=== PATIENT | male | born 1960 | race Caucasian/White ===

== ENCOUNTER → 2020-02-01 12:26 | Outpatient (BNVA) | payer OTHER, SELFPAY | PROVIDERS: PCP Internal Medicine; Referring Provider Internal Medicine; Visit Provider Physician Assistant | DX: Z01.818 Encounter for other preprocedural examination (principal); Z80.0 Family history of malignant neoplasm of digestive organs | CPT/HCPCS: 99202 ==

== ENCOUNTER 2020-04-17 08:35 | Outpatient (REF) | payer OTHER, SELFPAY ==
[2020-04-17 09:59] LABS: Prostate Specific Antigen 0.38 ng/mL (<0.05-4.0)
[2020-04-18 09:02] LABS: Herpes Simplex Type 2 IgG <0.90 index
[2020-04-21 14:02] LABS: HSV 1 IgM IFA Negative (Negative); HSV 2 IgM IFA Negative (Negative)
== END 2020-04-17 08:36 | disposition home or self-care (01) ==
LOC: HO.LAB 08:35
PROVIDERS: PCP Internal Medicine; Visit Provider Internal Medicine
DX: R35.0 Frequency of micturition (principal); K13.79 Other lesions of oral mucosa; R39.89 Other symptoms and signs involving the genitourinary system
CPT/HCPCS: 36415; 84153; 86695; 86696

== ENCOUNTER 2021-03-29 07:42 | Outpatient (REF) | payer OTHER, SELFPAY ==
[2021-03-29 08:03] LABS: MANUAL DIFF FLAG NO
[2021-03-29 08:06] LABS: Basophils Absolute Auto 0.1 X10*3/uL (0.0-0.2); Basophils Percent Auto 0.8 % (0-2); Eosinophils Absolute Auto 0.4 X10*3/uL (0.0-0.4); Eosinophils Percent Auto 5.3 % (0-4); Hematocrit 47.1 % (42.0-52.0); Hemoglobin 16.2 g/dl (14.0-18.0); Imm Gran Abs Auto 0.01 X10*3/uL (0.00-0.03); Imm Gran Pct Auto 0.1 % (0.0-0.4); Lymphocytes Absolute Auto 1.4 X10*3/uL (1.2-4.9); Lymphocytes Percent Auto 19.4 % (20-40); Mean Corpuscular HGB Conc 34.4 g/dl (31.0-36.0); Mean Corpuscular Hemoglobin 36.7 pg (27.0-33.0); Mean Corpuscular Volume 106.8 fL (80.0-98.0); Mean Platelet Volume 10.4 fL (9.4-12.4); Monocytes Absolute Auto 0.6 X10*3/uL (0.1-1.2); Monocytes Percent Auto 8.6 % (2-11); Neutrophils Absolute Auto 4.8 x10*3/uL (2.0-8.3); Neutrophils Percent Auto 65.8 % (45-73); Platelet Count 142 X10*3/uL (160-400); Red Blood Count 4.41 X10*6/uL (4.60-5.80); Red Cell Distribution Width 12.4 % (11.0-16.0); White Blood Count 7.3 X10*3/uL (4.8-10.8)
[2021-03-29 08:33] LABS: Alanine Aminotransferase 38 U/L (0-40); Albumin Level 4.1 g/dL (3.5-5.0); Alkaline Phosphatase 131 U/L (39-117); Anion Gap 12 (12-20); Aspartate Amino Transferase 50 U/L (5-37); Bilirubin Total 1.5 mg/dL (0.0-1.0); Blood Urea Nitrogen 9 mg/dL (9-16); Calcium 9.8 mg/dL (8.4-10.2); Carbon Dioxide 28 mmol/L (22-29); Chloride 102 mmol/L (96-108); Cholesterol 175 mg/dL; Estimated Glomerular Filt Rate > 60; Glucose Fasting 90 mg/dL (60-99); HDL Cholesterol 81 mg/dL; LDL Cholesterol Calculated 73 mg/dl; Sodium 138 mmol/L (135-145); Total Protein 7.3 g/dL (6.5-8.0); Triglycerides 107 mg/dL
[2021-03-29 08:38] LABS: B Type Natriuretic Peptide 618 pg/mL (<100)
[2021-03-29 08:53] LABS: TSH reflex Free T4 1.73 uIU/mL (0.32-4.0); Vitamin D 25-OH Total 28.8 ng/mL (>30)
[2021-03-29 09:09] LABS: Digoxin < 0.3 ng/mL (0.8-2.0)
[2021-03-29 10:12] LABS: Appearance Urine CLEAR; Color Urine YELLOW; Glucose Urine UA NEG (NEG); Leukocyte Esterase Urine NEG (NEG); Nitrite Urine NEG (NEG); Urine Blood NEG (NEG); Urine Ketones NEG (NEG); Urine Protein NEG (NEG-TRACE)
== END 2021-03-29 07:43 | disposition home or self-care (01) ==
LOC: HO.LAB 07:42
PROVIDERS: Visit Provider Internal Medicine
DX: I11.0 Hypertensive heart disease with heart failure (principal); I50.20 Unspecified systolic (congestive) heart failure; I25.10 Atherosclerotic heart disease of native coronary artery without angina pectoris; J44.9 Chronic obstructive pulmonary disease, unspecified; E78.00 Pure hypercholesterolemia, unspecified; E55.9 Vitamin D deficiency, unspecified; Z79.899 Other long term (current) drug therapy
CPT/HCPCS: 36415; 80053; 80061; 80162; 81003; 82306; 83880; 84443; 85025

== ENCOUNTER → 2021-05-15 13:50 | Outpatient (REF) | payer OTHER, SELFPAY ==
--- NOTE | 2021-05-15 13:56 | CA_ITS ---
Transthoracic Echocardiogram Patient (Last, First, Middle): Bryan Fischer, Gender: Male Date of : 1960 Age: 61 Procedure Date: 05/15/2021 Procedure Type: Transthoracic Echocardiogram Location: OP Height: 170.18 cm Weight: 51.26 kg BSA: 1.59 m2 Heart Rate: bpm BP: 98 / 63 mmHg Marketing Representative: TSERING Gregorio MD: Cleveland Marie MD Dictating Machine Typist: Rolf James MD Symptoms: I50.20 - Unspecified systolic (congestive) heart failure Study Quality: Fair/Contrast ECG Rhythm: Sinus Conclusions: - 1. Moderately dilated left ventricle with severe LV systolic dysfunction with LVEF of about 15% with regional wall motion abnormality in LAD territory consistent with prior myocardial infarction. Restrictive LV filling pattern noted. No evidence of LV thrombus. 2. Mildly dilated right ventricle with mildly reduced RV systolic function 3. At least moderately dilated left atrium 4. At least moderate mitral regurgitation secondary to annular dilatation 5. Moderately elevated right ventricular systolic pressure 6. No gross pericardial effusion Findings Procedure Information Contrast agent, definity, is being given per protocol without apparent complications. Left Ventricle Moderately increased left ventricular cavity size. There is normal left ventricular wall thickness. The left ventricular systolic function is severely decreased. The visually estimated ejection fraction is between 10 15%. Spectral Doppler is indicative of a restrictive filling pattern. There is no evidence of a thrombus in the left ventricle. Wall Motion Rest Echo Findings The inferior wall, entire lateral wall, and basal anterior segment are hypokinetic. The entire septum, the apex, apical anterior, and mid anterior segments are akinetic. Right Ventricle Mildly increased right ventricular cavity size. There is mildly decreased right ventricular systolic function. Atria The left atrium is moderately dilated. Interatrial shunt cannot be excluded. The right atrium is mildly dilated. Aortic Valve The aortic valve structure and function is likely normal. There is no aortic valve stenosis. There is trace (trivial) aortic valve regurgitation. Mitral Valve There is mild anterior and posterior mitral leaflet thickening. There is moderate mitral valve regurgitation. There is moderate mitral annular dilatation. Pulmonic Valve The pulmonic valve is likely normal. There is trace to mild pulmonic valve regurgitation. Tricuspid Valve Normal tricuspid valve structure. There is mild tricuspid valve regurgitation. Normal right atrial pressure. Moderate pulmonary hypertension is present. Great Vessels All visible segments of the aorta are normal in size. The pulmonary artery was not well visualized. Venous The inferior vena cava is normal in size and collapses greater than 50% with inspiration. Pericardium/Pleural There is no evidence of pericardial effusion. Prior Study Comparison Changes noted compared to prior study dated: 07/17/2018. Mitral regurgitation appears to be worse. RV systolic pressure is elevated Measurements 2D Linear Measurements IVSd: 0.71 0.6-0.9/0.6-1.0 cm LVIDd: 6.55 3.9-5.3/4.2-5.9 cm LVIDd Index: 4.12 2.4-3.2/2.2-3.1 cm/m2 LVIDs: 6.29 2.0-3.6 cm LVPWd: 0.94 0.7-1.1 cm Ao Root: 3.30 2.1-3.5 cm LA Diam: 4.00 2.7-3.8/3.0-4.0 cm LAIDs Index: 2.52 1.5-2.3 cm/m2 LV Mass: 280.75 67-162/88-224 g LV Mass Index: 176.57 43-95/49-115 g/m2 LVOT Diam: 2.00 3.0+(-)1.3 cm 2D Systolic Function EF 4C: 20.80 >55% EF 2C: 20.40 >55% EF BiP: 20.10 >55% Aortic Valve AoV Pk Paul: 0.78 AoV Mn Paul: 0.57 AoV VTI: 0.12 AoV Pk Grad: 2.00 Aov Mn Grad: 1.00 JANET Cont.VTI: 1.78 LVOT LVOT Pk Paul: 0.48 LVOT Mn Paul: 0.28 LVOT VTI: 0.07 LVOT Pk Grad: 1.00 LVOT Mn Grad: 0.00 LVOT Diam: 2.00 LVOT Area: 3.14 Right Ventricle TAPSE (mm): 15.00 TVS' Paul: 6.85 Tricuspid Valve TR Pk Paul: 3.43 TR Pk Grad: 47.00 RA Press: 3.00 RVSP: 50.00 Great Vessels Aorta Ao Root-2D: 3.30 2.0-3.7 cm Ao Asc: 3.40 2.1-3.4 cm Ao Arch: 2.60 Updated in Other Vendor System with Status of Final Rolf James MD electronically signed on 05/16/2021 8:56:18 AM with status of Final
== END ==
LOC: HO.CARD 13:50
PROVIDERS: PCP Internal Medicine; Visit Provider Internal Medicine
DX: I50.20 Unspecified systolic (congestive) heart failure (principal)
CPT/HCPCS: 93306; Q9957

== ENCOUNTER 2021-05-29 08:04 | Outpatient (REF) | payer OTHER, SELFPAY ==
[2021-05-29 09:32] LABS: Alanine Aminotransferase 9 U/L (0-40); Albumin Level 3.2 g/dL (3.5-5.0); Alkaline Phosphatase 110 U/L (39-117); Anion Gap 13 (12-20); Aspartate Amino Transferase 18 U/L (5-37); Bilirubin Total 0.7 mg/dL (0.0-1.0); Blood Urea Nitrogen 12 mg/dL (9-16); Calcium 8.8 mg/dL (8.4-10.2); Carbon Dioxide 24 mmol/L (22-29); Chloride 106 mmol/L (96-108); Estimated Glomerular Filt Rate > 60; Glucose Random 144 mg/dL (60-115); Lipase 15 U/L (8-78); Sodium 139 mmol/L (135-145); Total Protein 5.8 g/dL (6.5-8.0)
[2021-05-29 09:53] LABS: Erythrocyte Sedimentation Rate 4 MM/HR (0-15); Prostate Specific Antigen 0.72 ng/mL (<0.05-4.0)
[2021-05-29 10:01] LABS: Appearance Urine HAZY; Color Urine YELLOW; Glucose Urine UA NEG (NEG); Leukocyte Esterase Urine NEG (NEG); Nitrite Urine NEG (NEG); Specific Gravity - Urine >= 1.030 (1.005-1.025); Urine Blood NEG (NEG); Urine Ketones 5 MG/DL (NEG); Urine Protein TRACE MG/DL (NEG-TRACE)
== END 2021-05-29 08:05 | disposition home or self-care (01) ==
LOC: HO.LAB 08:04
PROVIDERS: PCP Internal Medicine; Visit Provider Internal Medicine
DX: Z12.5 Encounter for screening for malignant neoplasm of prostate (principal); R10.30 Lower abdominal pain, unspecified; N40.0 Benign prostatic hyperplasia without lower urinary tract symptoms
CPT/HCPCS: 36415; 80053; 81003; 83690; 84153; 85652

== ENCOUNTER 2021-06-11 09:02 | Emergency (ER) | payer OTHER, SELFPAY ==
[2021-06-11 09:19] VITALS: BP 116/58; PULSE 84; O2SAT 100; BMI 17.6
--- NOTE | 2021-06-11 09:47 | ECG_ITS ---
Test Reason : chest pain Blood Pressure : / mmHG Vent. Rate : 083 BPM Atrial Rate : 083 BPM P-R Int : 160 ms QRS Dur : 104 ms QT Int : 422 ms P-R-T Axes : 055 -64 128 degrees QTc Int : 495 ms Normal sinus rhythm Possible Left atrial enlargement Left anterior fascicular block Minimal voltage criteria for LVH, may be normal variant ( Jason product ) Anterolateral infarct (cited on or before 09-FEB-2018) Abnormal ECG When compared with ECG of 15-JUL-2018 11:45, Questionable change in initial forces of Septal leads Questionable change in initial forces of Lateral leads ST elevation now present in Anterior leads Referred By: Gurdeep Harry Electronically Signed By:SURENDRA COUCH MD
--- NOTE | 2021-06-11 09:47 | ED_ITS ---
HPI - Chest Pain General Chief Complaint: Chest Pain Stated Complaint: CP PER EMS Time Seen by Provider: 06/11/21 09:47 Source: patient Mode of arrival: EMS Limitations: no limitations History of Present Illness HPI narrative: 61-year-old male recently taken off hospice for 1 week has history of end-stage CHF with an ejection fraction 15%. Patient comes in today complaining of worsening shortness of breath and chest pain he denies any falls or injuries denies nausea vomiting or diarrhea. Patient was on oxygen home was taken off once hospice left the house. MD complaint: chest heaviness Related Data Home Medications Medication Instructions Recorded Confirmed atropine 1 % eye drops 1 drp PO Q4-6H PRN 04/16/20 06/10/21 docusate sodium 100 mg capsule 100 mg PO BID PRN 04/16/20 06/10/21 fluoxetine 20 mg capsule 20 mg PO QAM 04/16/20 06/10/21 hydrocortisone 2.5 % topical cream 1 appl TOPICAL TID PRN 04/16/20 06/10/21 ketoprofen 10 % topical cream in appl TOPICAL BID PRN g 04/16/20 06/10/21 packet midodrine 10 mg tablet 15 mg PO TID 04/16/20 06/10/21 nystatin 100,000 unit/gram topical TOPICAL 04/16/20 06/10/21 cream saliva stimulant comb. no.3 1 appl MUCOUS MEMBRANE Q3H PRN ml 04/16/20 06/10/21 (Biotene Moisturizing Mouth) gabapentin 800 mg tablet 800 mg PO BID 06/18/20 06/10/21 sennosides 8.6 mg tablet 8.6 mg PO BEDTIME PRN tab 06/18/20 06/10/21 trazodone 50 mg tablet 50 mg PO BEDTIME PRN tab 06/18/20 06/10/21 Oxygen Home Use 06/03/21 06/10/21 Previous Rx's Medication Instructions Recorded fluticasone propionate 50 1 spray INTRANASAL DAILY #150 ml 10/09/20 mcg/actuation nasal spray,suspension (Flonase Allergy Relief) fluticasone propionate 50 2 spray INTRANASAL DAILY 30 Days 10/15/20 mcg/actuation nasal #16 g spray,suspension food supplemt, lactose-reduced 1 ea PO TID #90 bottle 12/05/20 (Ensure High Protein) aspirin 81 mg tablet,delayed 81 mg PO DAILY #30 tab 05/21/21 release digoxin 125 mcg (0.125 mg) tablet 62.5 mcg PO DAILY #30 tab 05/21/21 loratadine 10 mg tablet 10 mg PO DAILY PRN #30 tab 05/21/21 spironolactone 25 mg tablet 25 mg PO DAILY #30 tab 05/21/21 omeprazole 20 mg capsule,delayed 40 mg PO DAILY 30 Days #60 cap 05/22/21 release quetiapine 200 mg tablet 200 mg PO BEDTIME 30 Days #30 tab 05/23/21 albuterol sulfate 90 mcg/actuation 2 puff PO Q6H PRN #8.5 g 05/28/21 aerosol inhaler oxycodone 5 mg tablet 5 mg PO TID PRN 28 Days #84 tab 05/28/21 clonazepam 0.5 mg tablet 0.5 mg PO TID PRN 30 Days #90 tab 06/03/21 famotidine 20 mg tablet 20 mg PO BEDTIME 30 Days #30 tab 06/03/21 OXYGEN #1 ea 06/04/21 Allergies Allergy/AdvReac Type Severity Reaction Status Date / Time nicotine AdvReac Unknown severe Verified 06/10/21 10:09 nausea FRUIT Allergy Severe MOUTH AND Uncoded 06/10/21 10:09 FACE ITCHY, MOUTH SWELLING Review of Systems Review of Systems: Review of systems: General: Patient denies any fever chills recent illness or falls Musculoskeletal: Denies back pain or body aches or other injuries HEENT: denies headache, runny nose, ear pain Respiratory: Shortness of breath denies cough Cardiovascular: chest pain no palpitations : denies dysuria, frequency Abdomen: no nausea vomiting denies abdominal pain Extremities: no swelling, no pain Skin: no diaphoresis Yes all other systems are reviewed and are negative PMFSH Past Medical History Medical History Alcohol abuse Allergic rhinitis Anxiety and depression Chronic obstructive pulmonary disease (COPD) Coronary artery disease Degenerative cervical spinal stenosis Family history of colon cancer Genital sore GERD (gastroesophageal reflux disease) HFrEF (heart failure with reduced ejection fraction) Insomnia Left ear pain Lumbar degenerative disc disease Mouth sores Pure hypercholesterolemia Recurrent epigastric abdominal pain Surgical History H/O prior ablation treatment History of inguinal hernia repair History of placement of stent in LAD coronary artery Family History Family History Brother Colon cancer Adenomatous polyps Mother Colon cancer Adenomatous polyps Hypertension CVD (cardiovascular disease) Father Medical history unknown Social History Social History Household Members Other:: living with ex- Housing: Apartment Alcohol intake: former Patient Tobacco Use Status: Current everyday Tobacco user Tobacco use type: Cigarette Cigarettes Per Day: 2 e-Cigarette/Vaping Use: Never Used Second Hand Smoke Exposure: Yes Advance Directives: No Advance Directives Information Provided: No service: No Current occupational status: disabled Cognitive needs: No Hearing needs: No Vision needs: No Physical Exam Vital Signs: Vital Signs: Last Vital Signs Pulse 82 06/11/21 10:00 Resp 18 06/11/21 10:00 BP 105/82 06/11/21 10:00 Pulse Ox 97 06/11/21 10:00 BMI result Body Mass Index 17.6 General: Well-appearing well-nourished in no signs of distress HEENT: Normocephalic atraumatic Neck: No signs of JVD, no masses no tenderness or lymphadenopathy Cardiovascular: Regular rate and rhythm Respiratory: Clear to auscultation bilaterally Abdomen: Soft nontender no masses Extremities: Normal pedal pulses no signs of edema Skin: Dry warm no rashes Back: No tenderness full ROM MDM - Chest Pain MDM Narrative Medical decision making narrative: Concern for CHF with EF 10% I will check labs again his facial tolerate fluids. 1102 Patient has signs of CHF and wants to go back on hospice. I spoke with case managment and will start the process of getting the patient back on hospice. 1349 patient has a plan to follow up with the same hospice group but cannot start till Thursday. Patient does not require oxygen here patient is happy with the plan to go home I do not think I can change his chronic CHF even though he does have an elevated BNP he is okay with plan to go home follow up on Thursday. Differential Diagnosis Differential diagnosis: Likely stable angina, unstable angina pectoris, atypical chest pain and chest pain Medical Records Data Attestation: I reviewed the patient's medical records. Lab Data Attestation: I reviewed the patient's lab results. Result diagrams: 06/11/21 10:07 06/11/21 10:10 Labs: Lab Results 06/11/21 06/11/21 06/11/21 Range/Units 10:07 10:10 10:11 WBC 7.6 (4.8-10.8) X10*3/uL RBC 3.66 L (4.60-5.80) X10*6/uL Hgb 13.2 L (14.0-18.0) g/dl Hct 39.5 L (42.0-52.0) % MCV 107.9 H (80.0-98.0) fL MCH 36.1 H (27.0-33.0) pg MCHC 33.4 (31.0-36.0) g/dl RDW 14.2 (11.0-16.0) % Plt Count 223 D (160-400) X10*3/uL MPV 10.1 (9.4-12.4) fL Immature Gran % (Auto) 0.4 (0.0-0.4) % Neut % (Auto) 75.6 H (45-73) % Lymph % (Auto) 14.1 L (20-40) % [place] % (Auto) 6.2 (2-11) % Eos % (Auto) 2.9 (0-4) % Baso % (Auto) 0.8 (0-2) % Lymph # (Auto) 1.1 L (1.2-4.9) X10*3/uL [place] # (Auto) 0.5 (0.1-1.2) X10*3/uL Eos # (Auto) 0.2 (0.0-0.4) X10*3/uL Baso # (Auto) 0.1 (0.0-0.2) X10*3/uL Abs Immat Gran (auto) 0.03 (0.00-0.03) X10*3/uL Absolute Neuts (auto) 5.7 (2.0-8.3) x10*3/uL Absolute Nucleated RBC 0.000 (0.0-0.012) X10*3/uL Nucleated RBC % (auto) 0.0 (0.0-0.2) /100WBC Sodium 141 (135-145) mmol/L Potassium 4.6 (3.3-5.1) mmol/L Chloride 110 H (96-108) mmol/L Carbon Dioxide 25 (22-29) mmol/L Anion Gap 11 L (12-20) BUN 10 (9-16) mg/dL Creatinine 0.94 (0.5-1.4) mg/dL Estim Creat Clear Calc 61.3 Estimated GFR > 60 Random Glucose 87 D (60-115) mg/dL Calcium 8.8 (8.4-10.2) mg/dL Troponin I High Sens 5.6 (<3.5-35.0) ng/L B-Natriuretic Peptide 3942 H (<100) pg/mL ECG Data ECG #1: Attestation: I personally reviewed and interpreted this ECG as follows: ECG interpretation date: 06/11/21 Interpretation: Rate 83 nsr normal intervals no signs of ischemia Discharge Plan Discharge Clinical Impression: Coronary artery disease, Congestive heart failure, Encounter for hospice care Patient Disposition: Home, Self-Care Instructions: Heart Failure (ED), Fluid Restriction (ED) Additional Instructions: Please follow up as needed. Prescriptions: No Action fluticasone propionate 50 mcg/actuation spray,suspension 2 spray intranasal DAILY 30 Days Qty: 16 5RF Rx Instructions: administer into each nostril Ensure High Protein Liquid 1 ea PO TID Qty: 90 6RF aspirin 81 mg tablet,delayed release (DR/EC) 81 mg PO DAILY Qty: 30 1RF digoxin 125 mcg (0.125 mg) tablet 62.5 mcg PO DAILY Qty: 30 0RF loratadine 10 mg tablet 10 mg PO DAILY PRN (Reason: allergy symptoms) Qty: 30 1RF spironolactone 25 mg tablet 25 mg PO DAILY Qty: 30 0RF omeprazole 20 mg capsule,delayed release(DR/EC) 40 mg PO DAILY 30 Days Qty: 60 5RF quetiapine 200 mg tablet 200 mg PO BEDTIME 30 Days Qty: 30 2RF (DME) Oxygen Home Use Kit See Rx Instructions .Route 0RF Rx Instructions: As directed- 2LPM as needed dyspnea famotidine 20 mg tablet 20 mg PO BEDTIME 30 Days Qty: 30 5RF clonazepam 0.5 mg tablet 0.5 mg PO TID PRN (Reason: anxiety) 30 Days Qty: 90 0RF (DME) OXYGEN See Rx Instructions .Route .MEDSUPPLY Qty: 1 11RF Rx Instructions: As directed at 2 LPM per nasal cannula fluoxetine 20 mg capsule 20 mg PO QAM 0RF midodrine 10 mg tablet 15 mg PO TID 0RF nystatin 100,000 unit/gram cream topical 0RF docusate sodium 100 mg capsule 100 mg PO BID PRN0RF hydrocortisone 2.5 % cream 1 appl topical TID PRN0RF Biotene Moisturizing Mouth [place],Non-Aerosol 1 appl mucous membrane Q3H PRN0RF ketoprofen 10 % cream in packet topical BID PRN0RF atropine 1 % drops 1 drp PO Q4-6H PRN0RF Rx Instructions: administer to back of throat/tongue and swallow trazodone 50 mg tablet 50 mg PO BEDTIME PRN0RF sennosides 8.6 mg tablet 8.6 mg PO BEDTIME PRN (Reason: constipation) 0RF gabapentin 800 mg tablet 800 mg PO BID 0RF fluticasone propionate [Flonase Allergy Relief] 50 mcg/actuation spray,suspension 1 spray intranasal DAILY Qty: 150 0RF Rx Instructions: administer into each nostril albuterol sulfate 90 mcg/actuation HFA aerosol inhaler 2 puff PO Q6H PRN (Reason: shortness of breath or wheezing) Qty: 8.5 3RF oxycodone 5 mg tablet 5 mg PO TID PRN (Reason: pain) 28 Days Qty: 84 0RF Referrals: [facility] [Outside] - 2 days ([facility] WILL CALL TO ARRANGE A VISIT BY THURSDAY. )
[2021-06-11 10:00] VITALS: BP 105/82; PULSE 82; RESP 18; O2SAT 97
[2021-06-11 10:14] LABS: MANUAL DIFF FLAG NO
[2021-06-11] MEDS: Furosemide 20 MG/2 ML VIAL IVPUSH (10:16)
[2021-06-11 10:17] LABS: Basophils Absolute Auto 0.1 X10*3/uL (0.0-0.2); Basophils Percent Auto 0.8 % (0-2); Eosinophils Absolute Auto 0.2 X10*3/uL (0.0-0.4); Eosinophils Percent Auto 2.9 % (0-4); Hematocrit 39.5 % (42.0-52.0); Hemoglobin 13.2 g/dl (14.0-18.0); Imm Gran Abs Auto 0.03 X10*3/uL (0.00-0.03); Imm Gran Pct Auto 0.4 % (0.0-0.4); Lymphocytes Absolute Auto 1.1 X10*3/uL (1.2-4.9); Lymphocytes Percent Auto 14.1 % (20-40); Mean Corpuscular HGB Conc 33.4 g/dl (31.0-36.0); Mean Corpuscular Hemoglobin 36.1 pg (27.0-33.0); Mean Corpuscular Volume 107.9 fL (80.0-98.0); Mean Platelet Volume 10.1 fL (9.4-12.4); Monocytes Absolute Auto 0.5 X10*3/uL (0.1-1.2); Monocytes Percent Auto 6.2 % (2-11); Neutrophils Absolute Auto 5.7 x10*3/uL (2.0-8.3); Neutrophils Percent Auto 75.6 % (45-73); Platelet Count 223 X10*3/uL (160-400); Red Blood Count 3.66 X10*6/uL (4.60-5.80); Red Cell Distribution Width 14.2 % (11.0-16.0); White Blood Count 7.6 X10*3/uL (4.8-10.8)
[2021-06-11 10:32] LABS: Anion Gap 11 (12-20); Blood Urea Nitrogen 10 mg/dL (9-16); Calcium 8.8 mg/dL (8.4-10.2); Carbon Dioxide 25 mmol/L (22-29); Chloride 110 mmol/L (96-108); Creatinine Clr Calc Pharmacy 61.3; Estimated Glomerular Filt Rate > 60; Glucose Random 87 mg/dL (60-115); Potassium 4.6 mmol/L (3.3-5.1); Sodium 141 mmol/L (135-145)
--- NOTE | 2021-06-11 10:32 | PC.NURSE ---
Addendum entered by Shira Suazo RN 06/11/21 10:42: no vomiting. he also reports decrease appetite. pt has hx of COPD and CHF. he states that he was on hospice and was taken off. on arrival to ed pt satting 88 - 90% r/a, pt put on 1L n/c which brought sat up to 97-98%. 20g IV placed in AC, med given as documented, labs drawn. pt resting quietly, no apparent distress. will continue to monitor. Original Note: pt alert and oriented, vss, reports 7/10 chest discomfort with inhalation. he states that for 2 days now he has been having chest pain/sob, nausea mote by ghazala bobby
[2021-06-11 10:40] LABS: B Type Natriuretic Peptide 3942 pg/mL (<100); Troponin-I High Sensitivity 5.6 ng/L (<3.5-35.0)
[2021-06-11] MEDS: oxyCODONE HCl Immed Release 5 MG TABLET PO (12:52)
--- NOTE | 2021-06-11 13:26 | MHC.CM.ED ---
Received case management consult from Dr Harry. Patient came to the ER due to shortness of breathing. Patient was recently d/c'd from hospice. Patietn would like to resume hospice. Patient was active with [facility]. [facility]. They are unable to accept patient until Thursday. Met with patient. Patient feels he can safely return home and is willing to wait until Thursday to sign on to hospice. Patient's address verified as [address] [place] [address]. Hospice aware and will accept patient on Thursday. Continue to monitor for d/c needs.
== END 2021-06-11 14:19 | disposition home or self-care (01) ==
PROVIDERS: Emergency Provider Student in an Organized Health Care Education/Training Program; PCP Internal Medicine
DX: I25.10 Atherosclerotic heart disease of native coronary artery without angina pectoris (principal); I50.20 Unspecified systolic (congestive) heart failure; Z51.5 Encounter for palliative care; R06.02 Shortness of breath; F17.200 Nicotine dependence, unspecified, uncomplicated
CPT/HCPCS: 36415; 80048; 83880; 84484; 85025; 93005; 99284; 99285; J1940

== ENCOUNTER 2021-06-12 07:58 | Outpatient (REF) | payer OTHER, SELFPAY ==
[2021-06-12 08:13] LABS: MANUAL DIFF FLAG NO
[2021-06-12 09:01] LABS: Basophils Absolute Auto 0.1 X10*3/uL (0.0-0.2); Basophils Percent Auto 1.1 % (0-2); Eosinophils Absolute Auto 0.2 X10*3/uL (0.0-0.4); Eosinophils Percent Auto 2.6 % (0-4); Hematocrit 43.3 % (42.0-52.0); Hemoglobin 14.4 g/dl (14.0-18.0); Imm Gran Abs Auto 0.04 X10*3/uL (0.00-0.03); Imm Gran Pct Auto 0.5 % (0.0-0.4); Lymphocytes Absolute Auto 1.5 X10*3/uL (1.2-4.9); Mean Corpuscular HGB Conc 33.3 g/dl (31.0-36.0); Mean Corpuscular Hemoglobin 35.8 pg (27.0-33.0); Mean Corpuscular Volume 107.7 fL (80.0-98.0); Mean Platelet Volume 10.5 fL (9.4-12.4); Monocytes Absolute Auto 0.6 X10*3/uL (0.1-1.2); Monocytes Percent Auto 7.5 % (2-11); Neutrophils Absolute Auto 6.1 x10*3/uL (2.0-8.3); Neutrophils Percent Auto 71.3 % (45-73); Platelet Count 273 X10*3/uL (160-400); Red Blood Count 4.02 X10*6/uL (4.60-5.80); White Blood Count 8.5 X10*3/uL (4.8-10.8)
[2021-06-12 09:29] LABS: Alanine Aminotransferase 11 U/L (0-40); Albumin Level 3.5 g/dL (3.5-5.0); Alkaline Phosphatase 181 U/L (39-117); Anion Gap 14 (12-20); Aspartate Amino Transferase 19 U/L (5-37); Bilirubin Total 1.3 mg/dL (0.0-1.0); Blood Urea Nitrogen 11 mg/dL (9-16); Calcium 9.2 mg/dL (8.4-10.2); Carbon Dioxide 26 mmol/L (22-29); Chloride 104 mmol/L (96-108); Estimated Glomerular Filt Rate > 60; Glucose Random 96 mg/dL (60-115); Potassium 4.4 mmol/L (3.3-5.1); Sodium 140 mmol/L (135-145); Total Protein 6.7 g/dL (6.5-8.0)
== END 2021-06-12 07:59 | disposition home or self-care (01) ==
LOC: HO.LAB 07:58
PROVIDERS: PCP Internal Medicine; Visit Provider Nurse Practitioner Acute Care
DX: E86.0 Dehydration (principal)
CPT/HCPCS: 36415; 80053; 85025

== ENCOUNTER 2021-07-11 09:33 | Outpatient (REF) | payer OTHER, SELFPAY ==
--- NOTE | 2021-07-11 10:34 | MHC.AU.ANO ---
Adult Audiological Evaluation Date of Visit: 07/11/21 Reason for Appointment: Patient reports that for the last 8 months, he has been unable to hear out of his left ear. He has been having significant difficulty hearing people in general, especially if there is background noise. He has also noticed difficulty regulating his own voice and pronouncing certain words since he cannot hear his voice that well. Patient has a complex medical history. Does patient feel they have a hearing loss?: Yes If Yes, Which Ear?: Left Ear Hearing Handicap Inventory: HHIE SCORE: 40 Based on HHIE score, patient has: Severe perceived hearing handicap Ear History: Ear Deformity: None Reported Recent Ear Drainage: None Reported Recent Ear Pain: None Reported Family History of Hearing Loss?: No Recent Ear Infections: None Reported Ear Infections in Childhood: None Reported History of Ear Wax Buildup: None Reported Previous Ear Surgery: None Reported Bothersome Tinnitus/Ringing/Noises in Ears: Left Ear Ear used on the phone: None Reported Blocked/Full Sensation in Ear(s): Left Ear Medical History: Medical History: Chronic Heart Failure, Coronary Artery Disease, COPD, GERD, Degenerative Cervical Spinal Stenosis, Allergies Otoscopy: Right Ear: Unremarkable Left Ear: Unremarkable Tympanometry: Tympanometry performed due to: To assess integrity of the middle ear system Right Ear: Normal Middle Ear System (Type A) Left Ear: Reduced Middle Ear Compliance (Type As) Hearing Evaluation: Transducer(s) Used: Insert Earphones Method: Conventional Audiometry Stimuli Used: Pure Tones Right Ear: Description of Hearing: Normal from 250-1500 Hz, sloping to moderate sensorineural hearing loss Left Ear: Description of Hearing: Moderate rising to mild, sloping to moderately-severe and rising to moderate sensorineural hearing loss Speech Recognition Threshold (SRT): Method Used: Monitored Live Voice Stimuli Used: Spondee Words Right Ear: 20 dBHL Left Ear: 40 dBHL Word Discrimination: Method: Recorded Lists Word Lists Used: W-22 Right Ear: 100% at 65 dBHL Left Ear: 96% at 80 dBHL Most Comfortable Level (MCL): Right Ear: 65 dBHl Left Ear: 80 dBHL Recommendations: Audiological re-evaluation in one year. Referral to Ear, Nose, and Throat is highly recommended to address asymmetrical sensorineural hearing loss. Patient is interested in hearing aids. See Hearing Aid Evaluation note for details. Diagnosis: Primary Diagnosis: H90.3 Bilateral Sensorineural Hearing Loss Signature: Provider: Judie Benoit, MARIAM-A
--- NOTE | 2021-07-11 10:35 | MHC.AU.HAS ---
Hearing Aid Evaluation Date of Visit: 07/11/21 Historical Information: Description of Hearing: Right: Normal from 250-1500 Hz, sloping to moderate sensorineural hearing loss Left: Overall moderate/moderately-severe sensorineural hearing loss Summary: Patient was seen for audiological evaluation (see separate report for details). Patient is interested in amplification. He reports that his hearing loss has been significantly impacting his daily life. Hearing aid options were discussed. Hearing Aid Prescription: Based on the individual?s shared listening needs, communication environments, dexterity, desire for connectivity, and personal preferences, the following prescription for amplification has been made: Right ear: Auto Washer: PhonHStreaming Model: Audeo P70-R Battery Size: Rechargeable Color: 01 Beige Drafter (Cad) Electronic: 1M Left ear: Auto Washer: Phonak Model: Audeo P70-R Battery Size: Rechargeable Color: 01 Beige Drafter (Cad) Electronic: 1M Action Taken/Action Needed: Medical Clearance to be requested from PCP/ENT Hearing Instrument Fitting to be scheduled when materials arrive Primary Diagnosis: H90.3 Bilateral Sensorineural Hearing Loss Signature: Provider: Judie Benoit, CCC-A
--- NOTE | 2021-07-11 10:35 | MHC.AU.MED ---
Medical Clearance for Hearing Instrumentation Date: 07/11/21 Patient Name: Bryan Fischer Date of : 1960 Referring Provider: Cleveland Marie MD We have seen your patient on 07/11/21 and have determined that they are a candidate for amplification (See accompanying report). Specifically, they would benefit from: Hearing aid use in both ears There is a statute that addresses Medical Evaluation Requirements prior to fitting a patient with a hearing aid. According to [place] statute 265 CMR:6.03(1), (a) General. Except as provided in 265 CMR 6.03(1)(b), a it administrator shall not sell a hearing aid unless the prospective user has presented to the it administrator a written statement signed by a licensed physician that states that the patient's hearing loss has been medically evaluated and the patient may be considered a candidate for a hearing aid. The medical evaluation must have taken place within the preceding six months. Please note: Due to the [place] Statute referenced above, we cannot accept a signature other than that of a licensed physician. UX VISUAL DESIGNER and PA signatures cannot be accepted. I am in agreement with the above recommendation. There is no medical contraindication for hearing instrumentation. Physician Signature Date Physician Name (Printed)
== END 2021-07-11 09:34 | disposition home or self-care (01) ==
LOC: HO.SH 09:33
PROVIDERS: Visit Provider Internal Medicine
DX: Z01.118 Encounter for examination of ears and hearing with other abnormal findings (principal); H90.3 Sensorineural hearing loss, bilateral
CPT/HCPCS: 92557; 92567; 92591

== ENCOUNTER 2021-08-29 12:47 | Outpatient (REF) | payer OTHER, SELFPAY ==
--- NOTE | 2021-08-29 13:20 | MHC.AU.HFA ---
Hearing Instrument Fitting- Adult- Binaural Date of Visit: 08/29/21 Hearing Instruments Dispensed: Right Ear: Dyeing Machine Feeder: Phonak Model: Audeo P70-R Serial Number: [id number] Repair Warranty: 10/14/2024 Loss and Damage Warranty: 10/14/2024 Battery Size: Rechargeable Color: Beige License Registration Examiner: 1M Type of Dome: Small Open Dome Type of Wax Guard: CeruShield Left Ear: Dyeing Machine Feeder: Phonak Model: Audeo P70-R Serial Number: [id number] Repair Warranty: 10/14/2024 Loss and Damage Warranty: 10/14/2024 Battery Size: Rechargeable Color: Beige License Registration Examiner: 1M Type of Dome: Small Power Dome Type of Wax Guard: CeruShield Summary of Fitting: Feedback funeral service manager run. Verifit performed and levels adjusted to better reach targets. Patient felt 100% was too loud. Lowered until patient found the sound comfortable, at 85%. Patient was pleased with the sound of the instruments. Hearing aid care and use were discussed and practiced. Patient's phone recently broke and he will be getting a new one soon. He will call to schedule a follow-up when he gets his new phone so we can help him set up the Bluetooth. Recommendations: Please call our clinic with any questions or concerns. Diagnosis Code(s): Primary Diagnosis: H90.3 Bilateral Sensorineural Hearing Loss Signature: Provider: Judie Benoit, MARIAM-A
== END 2021-08-29 12:48 | disposition home or self-care (01) ==
LOC: HO.HAP 12:47
PROVIDERS: Visit Provider Internal Medicine
DX: Z46.1 Encounter for fitting and adjustment of hearing aid (principal); H90.3 Sensorineural hearing loss, bilateral
CPT/HCPCS: V5011; V5020; V5160; V5261

== ENCOUNTER 2021-09-18 08:23 | Outpatient (REF) | payer OTHER, SELFPAY ==
--- NOTE | ~2021-09-18 | XR_ITS ---
EXAMINATION: XR HIP, LEFT CLINICAL INFORMATION: Radiculopathy COMPARISON: None TECHNIQUE: Two views of the left hip. FINDINGS: Bone alignment is normal. No fracture or dislocation is seen. There is joint space narrowing at the left hip joint. No osteophyte formation or cystic changes seen. Bones of the visualized pelvis are unremarkable. The lungs are clear. XR/XR hip LT min 2V IMPRESSION: Joint space narrowing at the left hip joint.
--- NOTE | ~2021-09-18 | XR_ITS ---
EXAMINATION: XR LUMBOSACRAL SPINE CLINICAL INFORMATION: Pain COMPARISON: Previous x-ray July 2015 and MRI May 2017 TECHNIQUE: Three views of the lumbosacral spine. FINDINGS: There is curvature of the lower lumbar spine to the right. Bone alignment is otherwise normal. No fracture or dislocation is seen. Disc spaces are normal. Paraspinal soft tissues are normal. XR/XR lumbar spine 2-3V IMPRESSION: Mild curvature of the lower lumbar spine to the left.
== END 2021-09-18 08:24 | disposition home or self-care (01) ==
LOC: HO.XRAY 08:23
PROVIDERS: PCP Internal Medicine; Visit Provider Internal Medicine
DX: M54.50 Low back pain, unspecified (principal); M54.10 Radiculopathy, site unspecified
CPT/HCPCS: 72100; 73502

== ENCOUNTER 2021-11-24 08:57 | Emergency (ER) | payer OTHER, SELFPAY ==
--- NOTE | ~2021-11-24 | XR_ITS ---
EXAMINATION: XR CHEST CLINICAL INFORMATION: Shortness of breath. COMPARISON: 05/14/2019 chest radiographs. TECHNIQUE: Frontal view of the chest was obtained. FINDINGS: Mild prominence of the pulmonary vasculature and coarsened interstitial markings show a similar appearance to the previous study. The heart and mediastinal structures are unremarkable. XR/XR chest 1V IMPRESSION: Probable chronic interstitial changes without definitive acute cardiac pulmonary process.
--- NOTE | 2021-11-24 09:05 | ECG_ITS ---
Test Reason : Difficulty Breathing Blood Pressure : / mmHG Vent. Rate : 087 BPM Atrial Rate : 087 BPM P-R Int : 160 ms QRS Dur : 104 ms QT Int : 426 ms P-R-T Axes : 047 -52 -69 degrees QTc Int : 512 ms Normal sinus rhythm Possible Left atrial enlargement Left anterior fascicular block Minimal voltage criteria for LVH, may be normal variant ( [place] product ) Anterolateral infarct (cited on or before 09-FEB-2018) Prolonged QT Abnormal ECG When compared with ECG of 11-JUN-2021 10:21, No significant change was found Referred By: Vasu Philip Electronically Signed By:JEAN-CLAUDE MORELAND
--- NOTE | 2021-11-24 09:13 | ED.SOB ---
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 MD elicited complaint: shortness of breath Pertinent past history: congestive heart failure Onset (ago): day(s) (1) Timing: constant Severity: moderate Exacerbating factors: lying flat Relieving factors: nothing Known history of: other (CHF) Related Data Home Medications Medication Instructions Recorded Confirmed atropine 1 % eye drops 1 drp PO Q4-6H PRN 04/16/20 09/23/21 docusate sodium 100 mg capsule 100 mg PO BID PRN 04/16/20 09/23/21 fluoxetine 20 mg capsule 20 mg PO QAM 04/16/20 09/23/21 hydrocortisone 2.5 % topical cream 1 appl topical TID PRN 04/16/20 09/23/21 ketoprofen 10 % topical cream in appl topical BID PRN 04/16/20 09/23/21 packet midodrine 10 mg tablet 15 mg PO TID 04/16/20 09/23/21 nystatin 100,000 unit/gram topical topical 04/16/20 09/23/21 cream saliva stimulant comb. no.3 1 appl mucous membrane Q3H PRN 04/16/20 09/23/21 (Biotene Moisturizing Mouth mucosal spray) gabapentin 800 mg tablet 800 mg PO BID 06/18/20 09/23/21 sennosides 8.6 mg tablet 8.6 mg PO BEDTIME PRN constipation 06/18/20 09/23/21 trazodone 50 mg tablet 50 mg PO BEDTIME PRN 06/18/20 09/23/21 Oxygen Home Use 06/03/21 09/23/21 Previous Rx's Medication Instructions Recorded fluticasone propionate 50 1 spray intranasal DAILY #150 mL 10/09/20 mcg/actuation nasal spray,suspension (Flonase Allergy Relief) fluticasone propionate 50 2 spray intranasal DAILY 30 days 10/15/20 mcg/actuation nasal #16 grams spray,suspension food supplemt, lactose-reduced 1 ea PO TID #90 bottles 12/05/20 (Ensure High Protein oral liquid) digoxin 125 mcg (0.125 mg) tablet 62.5 mcg PO DAILY #30 tabs 05/21/21 loratadine 10 mg tablet 10 mg PO DAILY PRN allergy 05/21/21 symptoms #30 tabs omeprazole 20 mg capsule,delayed 40 mg PO DAILY 30 days #60 caps 05/22/21 release quetiapine 200 mg tablet 200 mg PO BEDTIME 30 days #30 tabs 05/23/21 albuterol sulfate 90 mcg/actuation 2 puff PO Q6H PRN shortness of 05/28/21 aerosol inhaler breath or wheezing #8.5 grams clonazepam 0.5 mg tablet 0.5 mg PO TID PRN anxiety 30 days 06/03/21 #90 tabs famotidine 20 mg tablet 20 mg PO BEDTIME 30 days #30 tabs 06/03/21 OXYGEN #1 ea 06/04/21 sacubitril 24 mg-valsartan 26 mg 1 tab PO BID 30 days #60 tabs 06/19/21 tablet (Entresto) aspirin 81 mg tablet,delayed 81 mg PO DAILY #30 tabs 06/24/21 release spironolactone 25 mg tablet 25 mg PO DAILY #30 tabs 07/22/21 oxycodone 15 mg tablet 15 mg PO Q6H PRN SOB and Pain 7 07/24/21 days #28 tabs oxycodone 5 mg tablet 5 mg PO Q3H PRN Breakthrough pain 07/24/21 7 days #56 tabs Allergies Allergy/AdvReac Type Severity Reaction Status Date / Time nicotine AdvReac Unknown severe Verified 09/17/21 11:46 nausea FRUIT Allergy Severe MOUTH AND Uncoded 09/17/21 11:46 FACE ITCHY, MOUTH SWELLING Review of Systems Constitutional: Constitutional: Reports no additional constitutional complaints ENT: Reports system reviewed and no additional complaints, except as documented Cardiovascular: Cardiovascular: Denies chest pain Respiratory: Respiratory: Reports other (SOB) Gastrointestinal: Gastrointestinal: Reports no additional gastrointestinal complaints Neurologic: Reports system reviewed and no additional complaints, except as documented PMFSH Past Medical History Medical History Alcohol abuse Allergic rhinitis Anxiety and depression Chronic obstructive pulmonary disease (COPD) Coronary artery disease Degenerative cervical spinal stenosis Family history of colon cancer Genital sore GERD (gastroesophageal reflux disease) Hearing loss HFrEF (heart failure with reduced ejection fraction) Insomnia Left ear pain Lumbar degenerative disc disease Mouth sores Pure hypercholesterolemia Recurrent epigastric abdominal pain Surgical History H/O prior ablation treatment History of inguinal hernia repair History of placement of stent in LAD coronary artery Family History Family History Brother Colon cancer Adenomatous polyps Mother Colon cancer Adenomatous polyps Hypertension CVD (cardiovascular disease) Father Medical history unknown Social History Social History Household Members Other:: living with ex- Housing: Apartment Alcohol intake: former Patient Tobacco Use Status: Current everyday Tobacco user Tobacco use type: Cigarette Cigarettes Per Day: 2 e-Cigarette/Vaping Use: Never Used Second Hand Smoke Exposure: Yes Advance Directives: Yes Advance Directives on File: Yes Advance Directives Date on File: 06/11/21 service: No Current occupational status: disabled Cognitive needs: No Hearing needs: No Vision needs: Yes Physical Exam Vital Signs: Vital Signs: Last Vital Signs Temp 97.9 F 11/24/21 09:17 Pulse 84 11/24/21 12:18 Resp 26 H 11/24/21 12:18 BP 105/73 11/24/21 12:18 Pulse Ox 96 11/24/21 12:18 O2 Del Method 11/24/21 12:18 O2 Flow Rate 2 11/24/21 10:38 Oxygen Flow Rate 2 11/24/21 09:17 BMI result Body Mass Index 19.1 Const: General: cooperative, alert and awake Nutritional Appearance: average body habitus Orientation/consciousness: patient oriented x3 HEENT: Head: Yes normal to inspection Face and sinus: Yes normal facial exam Mouth: Normal oral and palatal mucosa present Throat: Yes posterior oropharynx normal Neck: Neck: Yes normal visual inspection and Yes full ROM Chest: Chest palpation & inspection: normal inspection of the chest Resp: Other: crackles at the bases Auscultation: crackles (bases) Cardio: Jugular venous distension: no JVD Rate: regular rate Rhythm: regular rhythm GI: Inspection: Yes normal to inspection Palpation (GI): Soft to palpation, not firm, nontender and no guarding Skin: General skin exam: no rashes or lesions noted, elasticity normal and turgor normal Neuro: General: patient oriented x3 Course Reevaluation(s) Reevaluation #1: He is feeling much better he is now with 2Liter of 02,he has 2.5 Liter of O2 at home all the time.He is on Hospice care,received 40 mg of lasix and feels much better ,at this point will d/c home,I will speak also with case management assistant before d/c to make sure that Hospice service check on the pt Reevaluation #2: Asymptomatic at this time Sat 98% RA ,RR 18,feels well to go home. I spoke with the sister Maddy [phone] also confortable with the plan case management assistant Ame Banks will send a message to Hospice Time: 11:28 MDM - SOB/Dyspnea Lab Data Result diagrams: 11/24/21 09:45 11/24/21 09:45 Labs: Lab Results 11/24/21 11/24/21 11/24/21 Range/Units 09:39 09:44 09:45 WBC 12.7 H (4.8-10.8) X10*3/uL RBC 3.71 L (4.60-5.80) X10*6/uL Hgb 14.1 (14.0-18.0) g/dl Hct 40.1 L (42.0-52.0) % MCV 108.1 H (80.0-98.0) fL MCH 38.0 H (27.0-33.0) pg MCHC 35.2 (31.0-36.0) g/dl RDW 12.9 (11.0-16.0) % Plt Count 164 D (160-400) X10*3/uL MPV 10.4 (9.4-12.4) fL Immature Gran % (Auto) 0.4 (0.0-0.4) % Neut % (Auto) 88.7 H (45-73) % Lymph % (Auto) 4.6 L (20-40) % [place] % (Auto) 5.7 (2-11) % Eos % (Auto) 0.1 (0-4) % Baso % (Auto) 0.5 (0-2) % Lymph # (Auto) 0.6 L (1.2-4.9) X10*3/uL [place] # (Auto) 0.7 (0.1-1.2) X10*3/uL Eos # (Auto) 0.0 (0.0-0.4) X10*3/uL Baso # (Auto) 0.1 (0.0-0.2) X10*3/uL Abs Immat Gran (auto) 0.05 H (0.00-0.03) X10*3/uL Absolute Neuts (auto) 11.3 H (2.0-8.3) x10*3/uL Absolute Nucleated RBC 0.000 (0.0-0.012) X10*3/uL Nucleated RBC % (auto) 0.0 (0.0-0.2) /100WBC PT 15.0 H (10.0-13.1) SEC INR 1.3 H (0.9-1.1) Sodium (135-145) mmol/L Potassium (3.3-5.1) mmol/L Chloride (96-108) mmol/L Carbon Dioxide (22-29) mmol/L Anion Gap (12-20) BUN (9-16) mg/dL Creatinine (0.5-1.4) mg/dL Estim Creat Clear Calc Estimated GFR Random Glucose (60-115) mg/dL Calcium (8.4-10.2) mg/dL Total Bilirubin (0.0-1.0) mg/dL AST (5-37) U/L ALT (0-40) U/L Alkaline Phosphatase (39-117) U/L Troponin I High Sens (<3.5-35.0) ng/L B-Natriuretic Peptide (<100) pg/mL Total Protein (6.5-8.0) g/dL Albumin (3.5-5.0) g/dL Urine Color Urine Appearance Urine pH (5.0-8.0) Ur Specific [place] (1.005-1.025) Urine Protein (Neg-Trace) mg/dL Urine Glucose (UA) (Negative) mg/dL Urine Ketones (Negative) mg/dL Urine Blood (Negative) Urine Nitrite (Negative) Ur Leukocyte Esterase (Negative) Urine RBC (0-2) /HPF Urine WBC (0-5) /HPF Ur Squamous Epith Cells (0-2) /HPF Urine Bacteria (None Seen) Hyaline Casts (0-2) /LPF COVID-19 ([place]) Negative (Negative) COVID-19 Clin Com See Note 11/24/21 11/24/21 11/24/21 Range/Units 09:45 09:45 09:45 WBC (4.8-10.8) X10*3/uL RBC (4.60-5.80) X10*6/uL Hgb (14.0-18.0) g/dl Hct (42.0-52.0) % MCV (80.0-98.0) fL MCH (27.0-33.0) pg MCHC (31.0-36.0) g/dl RDW (11.0-16.0) % Plt Count (160-400) X10*3/uL MPV (9.4-12.4) fL Immature Gran % (Auto) (0.0-0.4) % Neut % (Auto) (45-73) % Lymph % (Auto) (20-40) % [place] % (Auto) (2-11) % Eos % (Auto) (0-4) % Baso % (Auto) (0-2) % Lymph # (Auto) (1.2-4.9) X10*3/uL [place] # (Auto) (0.1-1.2) X10*3/uL Eos # (Auto) (0.0-0.4) X10*3/uL Baso # (Auto) (0.0-0.2) X10*3/uL Abs Immat Gran (auto) (0.00-0.03) X10*3/uL Absolute Neuts (auto) (2.0-8.3) x10*3/uL Absolute Nucleated RBC (0.0-0.012) X10*3/uL Nucleated RBC % (auto) (0.0-0.2) /100WBC PT (10.0-13.1) SEC INR (0.9-1.1) Sodium 136 (135-145) mmol/L Potassium 4.3 (3.3-5.1) mmol/L Chloride 99 (96-108) mmol/L Carbon Dioxide 23 (22-29) mmol/L Anion Gap 18 (12-20) BUN 13 (9-16) mg/dL Creatinine 1.15 (0.5-1.4) mg/dL Estim Creat Clear Calc 54.0 Estimated GFR > 60 Random Glucose 99 (60-115) mg/dL Calcium 9.4 (8.4-10.2) mg/dL Total Bilirubin 1.7 H (0.0-1.0) mg/dL AST 32 D (5-37) U/L ALT 16 (0-40) U/L Alkaline Phosphatase 217 H (39-117) U/L Troponin I High Sens 10.7 D (<3.5-35.0) ng/L B-Natriuretic Peptide 4795 H (<100) pg/mL Total Protein 7.6 (6.5-8.0) g/dL Albumin 4.3 D (3.5-5.0) g/dL Urine Color Urine Appearance Urine pH (5.0-8.0) Ur Specific [place] (1.005-1.025) Urine Protein (Neg-Trace) mg/dL Urine Glucose (UA) (Negative) mg/dL Urine Ketones (Negative) mg/dL Urine Blood (Negative) Urine Nitrite (Negative) Ur Leukocyte Esterase (Negative) Urine RBC (0-2) /HPF Urine WBC (0-5) /HPF Ur Squamous Epith Cells (0-2) /HPF Urine Bacteria (None Seen) Hyaline Casts (0-2) /LPF COVID-19 ([place]) (Negative) COVID-19 Clin Com 11/24/21 Range/Units 10:12 WBC (4.8-10.8) X10*3/uL RBC (4.60-5.80) X10*6/uL Hgb (14.0-18.0) g/dl Hct (42.0-52.0) % MCV (80.0-98.0) fL MCH (27.0-33.0) pg MCHC (31.0-36.0) g/dl RDW (11.0-16.0) % Plt Count (160-400) X10*3/uL MPV (9.4-12.4) fL Immature Gran % (Auto) (0.0-0.4) % Neut % (Auto) (45-73) % Lymph % (Auto) (20-40) % [place] % (Auto) (2-11) % Eos % (Auto) (0-4) % Baso % (Auto) (0-2) % Lymph # (Auto) (1.2-4.9) X10*3/uL [place] # (Auto) (0.1-1.2) X10*3/uL Eos # (Auto) (0.0-0.4) X10*3/uL Baso # (Auto) (0.0-0.2) X10*3/uL Abs Immat Gran (auto) (0.00-0.03) X10*3/uL Absolute Neuts (auto) (2.0-8.3) x10*3/uL Absolute Nucleated RBC (0.0-0.012) X10*3/uL Nucleated RBC % (auto) (0.0-0.2) /100WBC PT (10.0-13.1) SEC INR (0.9-1.1) Sodium (135-145) mmol/L Potassium (3.3-5.1) mmol/L Chloride (96-108) mmol/L Carbon Dioxide (22-29) mmol/L Anion Gap (12-20) BUN (9-16) mg/dL Creatinine (0.5-1.4) mg/dL Estim Creat Clear Calc Estimated GFR Random Glucose (60-115) mg/dL Calcium (8.4-10.2) mg/dL Total Bilirubin (0.0-1.0) mg/dL AST (5-37) U/L ALT (0-40) U/L Alkaline Phosphatase (39-117) U/L Troponin I High Sens (<3.5-35.0) ng/L B-Natriuretic Peptide (<100) pg/mL Total Protein (6.5-8.0) g/dL Albumin (3.5-5.0) g/dL Urine Color Yellow Urine Appearance Clear Urine pH 5.5 (5.0-8.0) Ur Specific [place] <= 1.005 (1.005-1.025) Urine Protein Negative (Neg-Trace) mg/dL Urine Glucose (UA) Negative (Negative) mg/dL Urine Ketones Negative (Negative) mg/dL Urine Blood Negative (Negative) Urine Nitrite Negative (Negative) Ur Leukocyte Esterase Negative (Negative) Urine RBC 0-2 (0-2) /HPF Urine WBC 0-5 (0-5) /HPF Ur Squamous Epith Cells 0-2 (0-2) /HPF Urine Bacteria None Seen (None Seen) Hyaline Casts 0-2 (0-2) /LPF COVID-19 ([place]) (Negative) COVID-19 Clin Com Imaging Data Chest x-ray: Radiologist's impression: EXAMINATION: XR CHEST CLINICAL INFORMATION: Shortness of breath. COMPARISON: 05/14/2019 chest radiographs. TECHNIQUE: Frontal view of the chest was obtained. FINDINGS: Mild prominence of the pulmonary vasculature and coarsened interstitial markings show a similar appearance to the previous study. The heart and mediastinal structures are unremarkable. XR/XR chest 1V IMPRESSION: Probable chronic interstitial changes without definitive acute cardiac pulmonary process. ? Dictated By: Jona Alfred MD Signed By: <Electronically signed by Jona Alfred MD in OV> 11/24/21 1009 DD/ 0920 TD/TT:? Refining Still Operator: ALVINO ECG Data Attestation: I personally reviewed and interpreted this ECG as follows: ECG interpretation time: 09:33 Pacemaker model: NSR 87 old anteroseptal [place] Discharge Plan Discharge Clinical Impression: CHF (congestive heart failure) Patient Disposition: Home, Self-Care Instructions: Heart Failure (DC) Additional Instructions: Please follow-up with your primary care physician, return if you worse, also call the hospice nurse Prescriptions: No Action fluticasone propionate 50 mcg/actuation spray,suspension 2 spray intranasal DAILY 30 Days Qty: 16 5RF Rx Instructions: administer into each nostril Ensure High Protein Liquid 1 ea PO TID Qty: 90 6RF digoxin 125 mcg (0.125 mg) tablet 62.5 mcg PO DAILY Qty: 30 0RF loratadine 10 mg tablet 10 mg PO DAILY PRN (Reason: allergy symptoms) Qty: 30 1RF omeprazole 20 mg capsule,delayed release(DR/EC) 40 mg PO DAILY 30 Days Qty: 60 5RF quetiapine 200 mg tablet 200 mg PO BEDTIME 30 Days Qty: 30 2RF (DME) Oxygen Home Use Kit See Rx Instructions .Route Rx Instructions: As directed- 2LPM as needed dyspnea famotidine 20 mg tablet 20 mg PO BEDTIME 30 Days Qty: 30 5RF clonazepam 0.5 mg tablet 0.5 mg PO TID PRN (Reason: anxiety) 30 Days Qty: 90 0RF (DME) OXYGEN See Rx Instructions .Route .MEDSUPPLY Qty: 1 11RF Rx Instructions: As directed at 2 LPM per nasal cannula aspirin 81 mg tablet,delayed release (DR/EC) 81 mg PO DAILY Qty: 30 1RF spironolactone 25 mg tablet 25 mg PO DAILY Qty: 30 0RF oxycodone 15 mg tablet 15 mg PO Q6H PRN (Reason: SOB and Pain ) 7 Days Qty: 28 0RF oxycodone 5 mg tablet 5 mg PO Q3H PRN (Reason: Breakthrough pain ) 7 Days Qty: 56 0RF fluoxetine 20 mg capsule 20 mg PO QAM midodrine 10 mg tablet 15 mg PO TID nystatin 100,000 unit/gram cream topical docusate sodium 100 mg capsule 100 mg PO BID PRN hydrocortisone 2.5 % cream 1 appl topical TID PRN Biotene Moisturizing Mouth [place],Non-Aerosol 1 appl mucous membrane Q3H PRN ketoprofen 10 % cream in packet topical BID PRN atropine 1 % drops 1 drp PO Q4-6H PRN Rx Instructions: administer to back of throat/tongue and swallow trazodone 50 mg tablet 50 mg PO BEDTIME PRN sennosides 8.6 mg tablet 8.6 mg PO BEDTIME PRN (Reason: constipation) gabapentin 800 mg tablet 800 mg PO BID fluticasone propionate [Flonase Allergy Relief] 50 mcg/actuation spray,suspension 1 spray intranasal DAILY Qty: 150 0RF Rx Instructions: administer into each nostril Entresto 24-26 mg tablet 1 tab PO BID 30 Days Qty: 60 3RF albuterol sulfate 90 mcg/actuation HFA aerosol inhaler 2 puff PO Q6H PRN (Reason: shortness of breath or wheezing) Qty: 8.5 3RF Referrals: Cleveland Marie MD [Primary Care Provider] - 2 days Interventions: ED Discharge Assessment Last Done: 11/24/21 12:27 Discharge Date/Time: 11/24/21 12:31
[2021-11-24 09:17] VITALS: BP 107/77; PULSE 88; RESP 26; TEMP 36.6; O2SAT 98; BMI 19.1
[2021-11-24] MEDS: Morphine Sulfate 2 MG/ML CARTRIDGE IVPUSH (09:17)
[2021-11-24] MEDS: Furosemide 20 MG/2 ML VIAL IVPUSH (09:17)
[2021-11-24 09:52] LABS: MANUAL DIFF FLAG NO
[2021-11-24 09:57] LABS: Basophils Absolute Auto 0.1 X10*3/uL (0.0-0.2); Basophils Percent Auto 0.5 % (0-2); Eosinophils Percent Auto 0.1 % (0-4); Hematocrit 40.1 % (42.0-52.0); Hemoglobin 14.1 g/dl (14.0-18.0); Imm Gran Abs Auto 0.05 X10*3/uL (0.00-0.03); Imm Gran Pct Auto 0.4 % (0.0-0.4); Lymphocytes Absolute Auto 0.6 X10*3/uL (1.2-4.9); Lymphocytes Percent Auto 4.6 % (20-40); Mean Corpuscular HGB Conc 35.2 g/dl (31.0-36.0); Mean Corpuscular Volume 108.1 fL (80.0-98.0); Mean Platelet Volume 10.4 fL (9.4-12.4); Monocytes Absolute Auto 0.7 X10*3/uL (0.1-1.2); Monocytes Percent Auto 5.7 % (2-11); Neutrophils Absolute Auto 11.3 x10*3/uL (2.0-8.3); Neutrophils Percent Auto 88.7 % (45-73); Platelet Count 164 X10*3/uL (160-400); Red Blood Count 3.71 X10*6/uL (4.60-5.80); Red Cell Distribution Width 12.9 % (11.0-16.0); White Blood Count 12.7 X10*3/uL (4.8-10.8)
[2021-11-24 10:02] LABS: INTERNATIONAL NORM RATIO 1.3 (0.9-1.1)
[2021-11-24 10:18] LABS: B Type Natriuretic Peptide 4795 pg/mL (<100)
[2021-11-24 10:19] LABS: Appearance Urine Clear; Color Urine Yellow; Glucose Urine UA Negative (Negative); Leukocyte Esterase Urine Negative (Negative); Nitrite Urine Negative (Negative); PH 5.5 (5.0-8.0); Specific Gravity - Urine <= 1.005 (1.005-1.025); Urine Blood Negative (Negative); Urine Ketones Negative (Negative); Urine Protein Negative (Neg-Trace)
[2021-11-24 10:19] LABS: Troponin-I High Sensitivity 10.7 ng/L (<3.5-35.0)
[2021-11-24 10:21] LABS: Alanine Aminotransferase 16 U/L (0-40); Albumin Level 4.3 g/dL (3.5-5.0); Alkaline Phosphatase 217 U/L (39-117); Anion Gap 18 (12-20); Aspartate Amino Transferase 32 U/L (5-37); Bilirubin Total 1.7 mg/dL (0.0-1.0); Blood Urea Nitrogen 13 mg/dL (9-16); Calcium 9.4 mg/dL (8.4-10.2); Carbon Dioxide 23 mmol/L (22-29); Chloride 99 mmol/L (96-108); Estimated Glomerular Filt Rate > 60; Glucose Random 99 mg/dL (60-115); Potassium 4.3 mmol/L (3.3-5.1); Sodium 136 mmol/L (135-145); Total Protein 7.6 g/dL (6.5-8.0)
[2021-11-24 10:21] LABS: COVID-19 Test Negative (Negative); IDNOW Serial# 16C4AD1C
[2021-11-24 10:24] LABS: Bacteria Urine None Seen (None Seen); Hyaline Casts Urine 0-2 /LPF (0-2); RBC Urine 0-2 /HPF (0-2); Squamous Epithelial Cell Urine 0-2 /HPF (0-2); WBC Urine 0-5 /HPF (0-5)
[2021-11-24 10:38] VITALS: BP 107/75; PULSE 88; RESP 22; O2SAT 97
--- NOTE | 2021-11-24 12:15 | MHC.CM.PN ---
EMR REVIEWED, CM CONTACTED PT'S DTR/HCP HERNANDO AT [phone], HERNANDO REPORTS PT IS ACTIVE W/[facility] AND IS ALREADY ON LASIX AND HOME O2 AT HOME, HERNANDO REPORTS FAMILY IS COMFORTABLE W/PT RETURNING HOME TODAY AND REPORTS PT W/CALL HERNANDO'S BROTHER FOR TRANSPORT ONCE D/C PAPERWORK COMPLETE. HERNANDO DID REQUEST TO SPEAK W/ED PROVIDER AND CM HAS NOTIFIED PROVIDER VIA [employer].
[2021-11-24 12:18] VITALS: BP 105/73; PULSE 84; RESP 26; O2SAT 96
== END 2021-11-24 12:31 | disposition home or self-care (01) ==
PROVIDERS: Emergency Provider Emergency Medicine; PCP Internal Medicine
DX: R06.02 Shortness of breath (principal); I50.9 Heart failure, unspecified; F17.210 Nicotine dependence, cigarettes, uncomplicated; Z71.6 Tobacco abuse counseling; Z20.822 Contact with and (suspected) exposure to COVID-19; Z79.899 Other long term (current) drug therapy
CPT/HCPCS: 36415; 71045; 80053; 81001; 83880; 84484; 85025; 85610; 87635; 93005; 96374; 96375; 99284; J1940; J2270

== ENCOUNTER 2022-05-13 07:36 | Emergency (ER) | payer OTHER, SELFPAY ==
--- NOTE | ~2022-05-13 | XR_ITS ---
EXAMINATION: XR CHEST CLINICAL INFORMATION: Shortness of breath. COMPARISON: 11/24/2021 chest radiograph. TECHNIQUE: Frontal view of the chest was obtained. FINDINGS: No significant abnormality is noted involving the heart, lungs, mediastinum, bony thorax or soft tissues. XR/XR chest 1V IMPRESSION: No acute cardiopulmonary process.
[2022-05-13 07:43] VITALS: BP 113/81; BP 118/82; PULSE 79; PULSE 80; RESP 20; TEMP 36.5; O2SAT 97; O2SAT 99; BMI 16.7
--- NOTE | 2022-05-13 07:50 | ECG_ITS ---
Test Reason : cp Blood Pressure : / mmHG Vent. Rate : 076 BPM Atrial Rate : 076 BPM P-R Int : 168 ms QRS Dur : 106 ms QT Int : 444 ms P-R-T Axes : 065 -76 021 degrees QTc Int : 499 ms Normal sinus rhythm Possible Left atrial enlargement Left anterior fascicular block Minimal voltage criteria for LVH, may be normal variant ( [place] product ) Lateral infarct (cited on or before 09-FEB-2018) Abnormal ECG When compared with ECG of 24-NOV-2021 09:20, No significant change was found Referred By: Vasu Philip Electronically Signed By:SURENDRA COUCH MD
--- NOTE | 2022-05-13 07:53 | ED.CHESTPAIN ---
HPI - Chest Pain General Chief Complaint: Chest Pain Stated Complaint: WEAK X'S 5 DAYS, COUGHING BLOOD X'S 2 DAYS Time Seen by Provider: 05/13/22 07:50 Source: patient Mode of arrival: EMS Limitations: no limitations History of Present Illness HPI narrative: This is a 62 years old man with history of cardiomyopathy with EF of 15%, history of coronary artery disease LAD stent history of anxiety a recovering alcoholic presented to emergency room complaining of weakness for about 5 days a cough with tinged sputum a for about 2 days. MD complaint: other (Weakness) Pertinent past history: coronary artery disease and other (Low EF 15%) Onset (ago): week(s) (1 Week) Prior episodes: Yes Onset: during rest Pain radiation: none Related Data Home Medications Medication Instructions Recorded Confirmed atropine 1 % eye drops 1 drp PO Q4-6H PRN 04/16/20 11/26/21 docusate sodium 100 mg capsule 100 mg PO BID PRN 04/16/20 11/26/21 fluoxetine 20 mg capsule 20 mg PO QAM 04/16/20 11/26/21 hydrocortisone 2.5 % topical cream 1 appl topical TID PRN 04/16/20 11/26/21 ketoprofen 10 % topical cream in appl topical BID PRN 04/16/20 11/26/21 packet midodrine 10 mg tablet 15 mg PO TID 04/16/20 11/26/21 nystatin 100,000 unit/gram topical topical 04/16/20 11/26/21 cream saliva stimulant comb. no.3 1 appl mucous membrane Q3H PRN 04/16/20 11/26/21 (Biotene Moisturizing Mouth mucosal spray) gabapentin 800 mg tablet 800 mg PO BID 06/18/20 11/26/21 sennosides 8.6 mg tablet 8.6 mg PO BEDTIME PRN constipation 06/18/20 11/26/21 trazodone 50 mg tablet 50 mg PO BEDTIME PRN 06/18/20 11/26/21 Oxygen Home Use 06/03/21 11/26/21 Previous Rx's Medication Instructions Recorded fluticasone propionate 50 1 spray intranasal DAILY #150 mL 10/09/20 mcg/actuation nasal spray,suspension (Flonase Allergy Relief) fluticasone propionate 50 2 spray intranasal DAILY 30 days 07/12/21 mcg/actuation nasal #16 grams spray,suspension food supplemt, lactose-reduced 1 ea PO TID #90 bottles 12/05/20 (Ensure High Protein oral liquid) digoxin 125 mcg (0.125 mg) tablet 62.5 mcg PO DAILY #30 tabs 05/21/21 loratadine 10 mg tablet 10 mg PO DAILY PRN allergy 05/21/21 symptoms #30 tabs omeprazole 20 mg capsule,delayed 40 mg PO DAILY 30 days #60 caps 05/22/21 release quetiapine 200 mg tablet 200 mg PO BEDTIME 30 days #30 tabs 05/23/21 albuterol sulfate 90 mcg/actuation 2 puff PO Q6H PRN shortness of 05/28/21 aerosol inhaler breath or wheezing #8.5 grams clonazepam 0.5 mg tablet 0.5 mg PO TID PRN anxiety 30 days 06/03/21 #90 tabs famotidine 20 mg tablet 20 mg PO BEDTIME 30 days #30 tabs 06/03/21 OXYGEN #1 ea 06/04/21 sacubitril 24 mg-valsartan 26 mg 1 tab PO BID 30 days #60 tabs 06/19/21 tablet (Entresto) aspirin 81 mg tablet,delayed 81 mg PO DAILY #30 tabs 06/24/21 release spironolactone 25 mg tablet 25 mg PO DAILY #30 tabs 07/22/21 oxycodone 15 mg tablet 15 mg PO Q6H PRN SOB and Pain 7 07/24/21 days #28 tabs oxycodone 5 mg tablet 5 mg PO Q3H PRN Breakthrough pain 07/24/21 7 days #56 tabs Allergies Allergy/AdvReac Type Severity Reaction Status Date / Time nicotine AdvReac Unknown severe Verified 11/26/21 16:06 nausea FRUIT Allergy Severe MOUTH AND Uncoded 11/26/21 16:06 FACE ITCHY, MOUTH SWELLING Review of Systems Constitutional: Constitutional: Reports no additional constitutional complaints, Reports body ache(s) and Reports other (weakness) Respiratory: Respiratory: Reports no additional respiratory complaints PMFSH Past Medical History Medical History Alcohol abuse Allergic rhinitis Anxiety and depression Chronic obstructive pulmonary disease (COPD) Coronary artery disease Degenerative cervical spinal stenosis Family history of colon cancer Genital sore GERD (gastroesophageal reflux disease) Hearing loss HFrEF (heart failure with reduced ejection fraction) Insomnia Left ear pain Lumbar degenerative disc disease Mouth sores Pure hypercholesterolemia Recurrent epigastric abdominal pain Surgical History H/O prior ablation treatment History of inguinal hernia repair History of placement of stent in LAD coronary artery Family History Family History Brother Colon cancer Adenomatous polyps Mother Colon cancer Adenomatous polyps Hypertension CVD (cardiovascular disease) Father Medical history unknown Social History Social History Household Members Other:: living with ex- Housing: Apartment Alcohol intake: former Patient Tobacco Use Status: Current everyday Tobacco user Tobacco use type: Cigarette Cigarettes Per Day: 2 Smoked in Last 30 Days: Yes e-Cigarette/Vaping Use: Never Used Second Hand Smoke Exposure: Yes Use of substances other than those prescribed or required for medical reasons: No Advance Directives: Yes Advance Directives on File: Yes Advance Directives Date on File: 06/11/21 service: No Current occupational status: disabled Cognitive needs: No Hearing needs: No Vision needs: Yes Physical Exam Vital Signs: Vital Signs: Last Vital Signs Temp 97.7 F 05/13/22 07:43 Pulse 78 05/13/22 12:45 Resp 12 05/13/22 12:45 BP 106/77 05/13/22 12:45 Pulse Ox 94 05/13/22 12:45 O2 Del Method 05/13/22 12:45 BMI result Body Mass Index 16.7 Const: General: cooperative Nutritional Appearance: average body habitus HEENT: Head: Yes normal to inspection Ears: hearing grossly normal bilaterally Mouth: Normal oral and palatal mucosa present Throat: Yes posterior oropharynx normal Neck: Neck: Yes normal visual inspection and Yes full ROM Chest: Chest palpation & inspection: normal inspection of the chest Resp: Effort & Inspection: normal respiratory effort Auscultation: clear to auscultation bilaterally Cardio: Jugular venous distension: no JVD Rate: regular rate Rhythm: regular rhythm GI: Inspection: Yes normal to inspection Palpation (GI): Soft to palpation, not firm, nontender and no guarding Skin: General skin exam: no rashes or lesions noted and elasticity normal Extrem: General: Yes normal to inspection Course Reevaluation(s) Reevaluation #1: I re-examined the patient at 12:35 a he feels much better delta troponin is negative I think at this time we could discharge the patient home Time: 12:39 Medications Administered Discontinued Medications Generic Name Dose Route Start Last Admin Trade Name Octavioq PRN Reason Stop Dose Admin Clonazepam 1 mg 05/13/22 07:50 05/13/22 08:02 Clonazepam 1 Mg Tablet PO 05/13/22 07:51 1 mg ONCE ONE Administration Loratadine 10 mg 05/13/22 10:26 05/13/22 10:44 Loratadine 10 Mg Tablet PO 05/13/22 10:27 10 mg ONCE ONE Administration Ondansetron HCl 4 mg 05/13/22 07:50 05/13/22 08:02 Ondansetron Hcl 4 Mg/2 Ml Vial IVPUSH 05/13/22 07:51 4 mg ONCE ONE Administration Oxycodone HCl 10 mg 05/13/22 07:50 05/13/22 08:02 Oxycodone Hcl Immed Release 5 Mg Tablet PO 05/13/22 07:51 10 mg ONCE ONE Administration Medical Decision Making Medical Decision Making [facility] Narrative: Patient presented with generalized weakness malaise cough he has history of CHF with CT labs chest x-ray and reassess Differential Diagnosis Differential Diagnoses: The differential diagnosis associated with the presentation includes Differential diagnosis is pulmonary edema/pneumonia/anxiety Admission/Observation Consideration of admission/observation: Escalation of care including admission/observation considered Lab Data [facility] Lab Attestation statement: I reviewed the patient's lab results. 05/13/22 08:10 05/13/22 08:10 Labs: Lab Results 05/13/22 05/13/22 05/13/22 Range/Units 08:10 08:10 08:10 WBC 6.3 (4.8-10.8) X10*3/uL RBC 4.42 L (4.60-5.80) X10*6/uL Hgb 14.1 (14.0-18.0) g/dl Hct 42.7 (42.0-52.0) % MCV 96.6 (80.0-98.0) fL MCH 31.9 (27.0-33.0) pg MCHC 33.0 (31.0-36.0) g/dl RDW 16.7 H (11.0-16.0) % Plt Count 189 (160-400) X10*3/uL MPV 10.0 (9.4-12.4) fL Immature Gran % (Auto) 0.2 (0.0-0.4) % Neut % (Auto) 70.1 (45-73) % Lymph % (Auto) 17.9 L (20-40) % Gregory % (Auto) 9.4 (2-11) % Eos % (Auto) 1.4 (0-4) % Baso % (Auto) 1.0 (0-2) % Lymph # (Auto) 1.1 L (1.2-4.9) X10*3/uL Gregory # (Auto) 0.6 (0.1-1.2) X10*3/uL Eos # (Auto) 0.1 (0.0-0.4) X10*3/uL Baso # (Auto) 0.1 (0.0-0.2) X10*3/uL Abs Immat Gran (auto) 0.01 (0.00-0.03) X10*3/uL Absolute Neuts (auto) 4.4 (2.0-8.3) x10*3/uL Absolute Nucleated RBC 0.000 (0.0-0.012) X10*3/uL Nucleated RBC % (auto) 0.0 (0.0-0.2) /100WBC PT 16.8 H (10.0-13.1) SEC INR 1.4 H (0.9-1.1) Sodium 140 (135-145) mmol/L Potassium 4.2 (3.3-5.1) mmol/L Chloride 99 (96-108) mmol/L Carbon Dioxide 23 (22-29) mmol/L Anion Gap 22 H (12-20) BUN 21 H (9-16) mg/dL Creatinine 1.47 H (0.5-1.4) mg/dL Estim Creat Clear Calc 42.3 Estimated GFR 49 Random Glucose 108 (60-115) mg/dL Calcium 9.5 (8.4-10.2) mg/dL Total Bilirubin 2.6 H (0.0-1.0) mg/dL AST 20 (5-37) U/L ALT 13 (0-40) U/L Alkaline Phosphatase 251 H (39-117) U/L Troponin I High Sens (<3.5-35.0) ng/L Total Protein 7.6 (6.5-8.0) g/dL Albumin 4.3 (3.5-5.0) g/dL COVID-19 ([place]) (Negative) COVID-19 Clin Com 05/13/22 05/13/22 05/13/22 Range/Units 08:10 08:10 10:47 WBC (4.8-10.8) X10*3/uL RBC (4.60-5.80) X10*6/uL Hgb (14.0-18.0) g/dl Hct (42.0-52.0) % MCV (80.0-98.0) fL MCH (27.0-33.0) pg MCHC (31.0-36.0) g/dl RDW (11.0-16.0) % Plt Count (160-400) X10*3/uL MPV (9.4-12.4) fL Immature Gran % (Auto) (0.0-0.4) % Neut % (Auto) (45-73) % Lymph % (Auto) (20-40) % Gregory % (Auto) (2-11) % Eos % (Auto) (0-4) % Baso % (Auto) (0-2) % Lymph # (Auto) (1.2-4.9) X10*3/uL Gregory # (Auto) (0.1-1.2) X10*3/uL Eos # (Auto) (0.0-0.4) X10*3/uL Baso # (Auto) (0.0-0.2) X10*3/uL Abs Immat Gran (auto) (0.00-0.03) X10*3/uL Absolute Neuts (auto) (2.0-8.3) x10*3/uL Absolute Nucleated RBC (0.0-0.012) X10*3/uL Nucleated RBC % (auto) (0.0-0.2) /100WBC PT (10.0-13.1) SEC INR (0.9-1.1) Sodium (135-145) mmol/L Potassium (3.3-5.1) mmol/L Chloride (96-108) mmol/L Carbon Dioxide (22-29) mmol/L Anion Gap (12-20) BUN (9-16) mg/dL Creatinine (0.5-1.4) mg/dL Estim Creat Clear Calc Estimated GFR Random Glucose (60-115) mg/dL Calcium (8.4-10.2) mg/dL Total Bilirubin (0.0-1.0) mg/dL AST (5-37) U/L ALT (0-40) U/L Alkaline Phosphatase (39-117) U/L Troponin I High Sens 7.7 7.7 (<3.5-35.0) ng/L Total Protein (6.5-8.0) g/dL Albumin (3.5-5.0) g/dL COVID-19 ([place]) Negative (Negative) COVID-19 Clin Com See Note Independent Interpretation I performed an independent interpretation of an: EKG (Normal sinus rhythm rate 76 old anteroseptal [place]) Radiology Impression Discussion of test interpretation with radiology: I have reviewed the radiologist's reading. Radiologist Impression: EXAMINATION: XR CHEST CLINICAL INFORMATION: Shortness of breath. COMPARISON: 11/24/2021 chest radiograph. TECHNIQUE: Frontal view of the chest was obtained. FINDINGS: No significant abnormality is noted involving the heart, lungs, mediastinum, bony thorax or soft tissues. XR/XR chest 1V IMPRESSION: No acute cardiopulmonary process. ? Dictated By: Jona Alfred MD Signed By: <Electronically signed by Jona Alfred MD in [place]> 05/13/2235 DD/ 6 TD/TT:? 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 External Record Review External record reviewed: Inpatient record Discharge Plan Discharge Clinical Impression: Chest pain Patient Disposition: Home, Self-Care Instructions: Chest Pain (DC) Additional Instructions: Follow-up with your primary care physician return if you worse any concern Prescriptions: No Action fluticasone propionate 50 mcg/actuation spray,suspension 2 spray intranasal DAILY 30 Days Qty: 16 5RF Rx Instructions: administer into each nostril Ensure High Protein Liquid 1 ea PO TID Qty: 90 6RF digoxin 125 mcg (0.125 mg) tablet 62.5 mcg PO DAILY Qty: 30 0RF loratadine 10 mg tablet 10 mg PO DAILY PRN (Reason: allergy symptoms) Qty: 30 1RF omeprazole 20 mg capsule,delayed release(DR/EC) 40 mg PO DAILY 30 Days Qty: 60 5RF quetiapine 200 mg tablet 200 mg PO BEDTIME 30 Days Qty: 30 2RF (DME) Oxygen Home Use Kit See Rx Instructions .Route Rx Instructions: As directed- 2LPM as needed dyspnea famotidine 20 mg tablet 20 mg PO BEDTIME 30 Days Qty: 30 5RF clonazepam 0.5 mg tablet 0.5 mg PO TID PRN (Reason: anxiety) 30 Days Qty: 90 0RF (DME) OXYGEN See Rx Instructions .Route .MEDSUPPLY Qty: 1 11RF Rx Instructions: As directed at 2 LPM per nasal cannula aspirin 81 mg tablet,delayed release (DR/EC) 81 mg PO DAILY Qty: 30 1RF spironolactone 25 mg tablet 25 mg PO DAILY Qty: 30 0RF oxycodone 15 mg tablet 15 mg PO Q6H PRN (Reason: SOB and Pain ) 7 Days Qty: 28 0RF oxycodone 5 mg tablet 5 mg PO Q3H PRN (Reason: Breakthrough pain ) 7 Days Qty: 56 0RF fluoxetine 20 mg capsule 20 mg PO QAM midodrine 10 mg tablet 15 mg PO TID nystatin 100,000 unit/gram cream topical docusate sodium 100 mg capsule 100 mg PO BID PRN hydrocortisone 2.5 % cream 1 appl topical TID PRN Biotene Moisturizing Mouth [place],Non-Aerosol 1 appl mucous membrane Q3H PRN ketoprofen 10 % cream in packet topical BID PRN atropine 1 % drops 1 drp PO Q4-6H PRN Rx Instructions: administer to back of throat/tongue and swallow trazodone 50 mg tablet 50 mg PO BEDTIME PRN sennosides 8.6 mg tablet 8.6 mg PO BEDTIME PRN (Reason: constipation) gabapentin 800 mg tablet 800 mg PO BID fluticasone propionate [Flonase Allergy Relief] 50 mcg/actuation spray,suspension 1 spray intranasal DAILY Qty: 150 0RF Rx Instructions: administer into each nostril Entresto 24-26 mg tablet 1 tab PO BID 30 Days Qty: 60 3RF albuterol sulfate 90 mcg/actuation HFA aerosol inhaler 2 puff PO Q6H PRN (Reason: shortness of breath or wheezing) Qty: 8.5 3RF Interventions: ED Discharge Assessment Last Done: 05/13/22 12:53 Discharge Date/Time: 05/13/22 12:53
--- OUTSIDE RECORDS SUMMARY | 2022-05-13 07:55 | XMS_ITS | Continuity of Care Document ---
:1960 Author Organization [facility] Address [address] [place] [id number]- Care Team Providers Name Role Phone Cleveland Marie MD Primary Care Physician Encounter [facility] [place] Date(s): 08/02/19 - 08/09/19 [facility] [address] [place] [id number] [facility] Attending Physician: Farzaneh Cain NP Referring Physician: Cleveland Marie MD Allergies, Adverse Reactions, Alerts Substance Reaction Severity Status Apples Active Pineapple Active Bananas Active Immunizations Given and Recorded Vaccine Date Status Refusal Reason pneumococcal 23-valent vaccine 05/16/18 Given influenza virus vaccine, inactivated 02/12/18 Given Not Given Vaccine Date Status Refusal Reason pneumococcal 23-valent vaccine 02/14/18 Not Given P atient Refuses Medications amantadine 100 mg oral tablet 1 tablet = 100 mg, By Mouth, Daily at bedtime, # 20 tablet, 0 Refills, Maintenance, 02/09/18 11:36:10 EST, Tablet Start Date: 02/09/18 Stop Date: 02/19/18 Status: Orderedaspirin 81 mg oral delayed release tablet 81 mg, By Mouth, Daily, # 30 tablet, Refills 0, Tot. Refills 0, Maintenance, 02/14/18 12:41:23 EST, Route to Pharmacy Electronically, [id number], [facility] Start Date: 02/14/18 Status: Orderedbisoprolol 5 mg oral tablet 1 tablet = 5 mg, By Mouth, Daily, restarted 05/17/2019, # 30 tablet, 3 Refills, Maintenance, :15:00 EDT, Tablet, [id number], 170, cm, 06/08/19 10:02:00 EST, Height, 59, kg, 05/15/18 0:52:00 EST, Dry Weight Start Date: 06/29/19 Status: OrderedClonazepam = 0.5 mg, By Mouth, PRN Anxiety, 0 Refills, Maintenance, 02/21/19 16:10:07 EST Start Date: 02/21/19 Status: Ordereddigoxin 0.125 mg oral tablet 62.5 mcg, 0.5, tablet, By Mouth, Daily, # 15 tablet, Refills 4, Tot. Refills 4, Maintenance, 04/27/19 11:17:00 EST, Route to Pharmacy Electronically, [facility]pharmacy #[id number], 170, cm, 04/27/19 9:58:00 EST, Height, 59, kg, 05/15/18 0:52:00 EST, Dry Weight Start Date: 04/27/19 Stop Date: 09/24/19 Status: Orderedfolic acid 1 mg oral tablet 1 mg, By Mouth, Daily, # 30 tablet, Refills 0, Tot. Refills 0, Maintenance, 02/14/18 12:41:50 EST, Route to Pharmacy Electronically, [id number], [facility] Start Date: 02/14/18 Status: OrderedIncruse Ellipta 62.5 mcg/inh inhalation powder Inhalation, Every 24 hours, 0 Refills, Maintenance, 02/21/19 16:08:15 EST Start Date: 02/21/19 Status: OrderedLidoderm 5% film 1 patch, Topically, Daily, # 14 patch, 0 Refills, Maintenance, 03/09/18 11:09:38 EST, 1 patch Topically Daily,x14 days Start Date: 03/09/18 Stop Date: 03/23/18 Status: OrderedLipitor 80 mg oral tablet 1 tablet = 80 mg, By Mouth, Daily at bedtime, # 30 tablet, 0 Refills, Maintenance, Tablet, Print Requisition Start Date: 03/01/18 Stop Date: 03/31/18 Status: Orderedloratadine 10 mg oral tablet 10 mg, 1, tablet, By Mouth, Daily, # 30 tablet, Refills 0, Maintenance, 02/09/18 11:36:53 EST Start Date: 02/09/18 Status: OrderedMelatonin 5 mg oral tablet 1 tablet = 5 mg, By Mouth, Daily at bedtime, PRN for insomnia, # 60 tablet, 0 Refills, Maintenance, 12/29/18 13:12:52 EDT, Tablet Start Date: 12/29/18 Status: Orderedmidodrine 2.5 mg oral tablet 10 mg, By Mouth, 3 times a day, # 90 tablet, Refills 3, Tot. Refills 3, Maintenance, 05/21/18 9:48:13 EST, Route to Pharmacy Electronically, [id number], [facility] Start Date: 05/21/18 Status: Orderedmultivitamin Multiple Vitamins oral tablet 1 tablet, By Mouth, Daily, # 30 tablet, 0 Refills, Maintenance, 02/14/18 12:42:14 EST, Tablet, 1 tablet By Mouth Daily Start Date: 02/14/18 Status: Orderednitroglycerin 0.2 mg/hr transdermal film, extended release 1 patch, Topically, Daily, # 30 patch, 3 Refills, Maintenance, 05/02/19 8:44:00 EST, Patch, [facility]/pharmacy #[id number], 170, cm, 04/27/19 9:58:00 EST, Height, 59, kg, 05/15/18 0:52:00 EST, Dry Weight Start Date: 05/02/19 Status: OrderedPantoprazole = 20 mg, By Mouth, Daily, 0 Refills, Maintenance, 02/21/19 16:08:29 EST Start Date: 02/21/19 Status: OrderedPlavix 75 mg oral tablet 75 mg, 1, tablet, By Mouth, Daily, # 30 tablet, Refills 0, Maintenance, 10/20/18 16:40:48 EDT Start Date: 10/20/18 Status: OrderedProAir HFA 90 mcg/inh inhalation aerosol with adapter 2, puffs, Inhalation, 2 times a day, Refills 0, Maintenance, 02/21/19 16:09:28 EST Start Date: 02/21/19 Status: OrderedPROzac 20 mg oral capsule 20 mg, 1, capsule, By Mouth, Daily in AM, # 60 capsule, Refills 0, Maintenance, 02/09/18 11:39:32 EST Start Date: 02/09/18 Status: OrderedSenna 8.6 mg oral tablet See Instructions, PRN, 1-2 tablets daily at bedtime, # 100 tablet, Refills 1, Tot. Refills 1, Maintenance, for constipation, 04/27/19 14:56:00 EST, Instructions Replace Required Details, Route to Pharmacy Electronically, [facility] #[id number] Tablet, 170... Start Date: 04/27/19 Status: OrderedSEROquel 100 mg oral tablet See Instructions, 1-2 tablet By Mouth at bedtime, Refills 0, Maintenance, 12/29/18 13:11:53 EDT, Instructions Replace Required Details Start Date: 12/29/18 Status: Orderedspironolactone 25 mg oral tablet 25 mg, By Mouth, Daily, # 30 tablet, Refills 0, Tot. Refills 0, Maintenance, 05/21/18 9:49:38 EST, Route to Pharmacy Electronically, [id number], [facility] Start Date: 05/21/18 Status: Orderedticagrelor 90 mg oral tablet 1 tablet = 90 mg, By Mouth, 2 times a day, # 180 tablet, 1 Refills, Maintenance, 09/14/18 9:16:54 EDT, Tablet Start Date: 09/14/18 Stop Date: 03/13/19 Status: Orderedtorsemide 20 mg oral tablet 2 tablet = 40 mg, By Mouth, 2 times a day, Reduce to 20mg BID when wt <126lbs, # 120 tablet, 11 Refills, Maintenance, 02/21/19 16:52:40 EST Start Date: 02/21/19 Status: OrderedtraZODone 50 mg oral tablet 50 mg, 1, tablet, By Mouth, Daily at bedtime, # 30 tablet, Refills 0, Maintenance, 12/29/18 13:12:38EDT Start Date: 12/29/18 Status: OrderedTylenol 325 mg oral tablet 650 mg, 2, tablet, By Mouth, Every 6 hours, PRN, # 120 tablet, Refills 1, Tot. Refills 1, Maintenance, for pain, 04/27/19 14:57:00 EST, Route to Pharmacy Electronically, [facility]/pharmacy #[id number], 170, cm, 04/27/19 9:58:00 EST, Height, 59, kg, 05/15/18 0:52:... Start Date: 04/27/19 Status: Ordered Problem List Condition Effective Dates Status Health Status Informant STEMI (ST elevation myocardial Active infarction)(Confirmed) Alcohol abuse(Confirmed) Active Anxiety(Confirmed) Active Cervical radiculopathy(Confirmed) Active CHF (congestive heart Active failure)(Confirmed) Depression(Confirmed) Active Heart failure with reduced ejection Active fraction(Confirmed) Tobacco dependence(Confirmed) Active Vertigo(Confirmed) Active Social History Social History Type Response Tobacco Use: quit smoking June 2018 , currently using nicotene patch. Sex Male
--- OUTSIDE RECORDS SUMMARY | 2022-05-13 07:55 | XMS_ITS | Continuity of Care Document ---
:1960 Author Organization [facility] Address [address] [place] [id number]- Care Team Providers Name Role Phone Frank HODGSON, Cleveland Siegel Primary Care Physician Encounter [facility] Date(s): 04/03/20 - 05/03/20 [facility] [address] [place] [id number] Allergies, Adverse Reactions, Alerts Substance Reaction Severity Status Apples Active Bananas Active Pineapple Active Immunizations Given and Recorded Vaccine Date [...] 02/14/18 12:41:23 EST, Route to Pharmacy Electronically, [id number], [facility] Start Date: 02/14/18 Status: OrderedClonazepam = 0.5 mg, By Mouth, PRN Anxiety, 0 Refills, Maintenance, 02/21/19 16:10:07 EST Start Date: 02/21/19 Status: Ordereddigoxin 0.125 mg oral tablet 62.5 mcg, 0.5, tablet, By Mouth, Daily, # 15 tablet, Refills 4, Tot. Refills 4, Maintenance, 04/27/19 11:17:00 EST, Route to Pharmacy Electronically, [facility]/pharmacy #[id number], 170, cm, 04/27/19 9:58:00 EST, Height, 59, kg, 05/15/18 0:52:00 EST, Dry Weight Start Date: 04/27/19 Stop Date: 09/24/19 Status: Orderedfolic acid 1 mg oral tablet 1 mg, By Mouth, Daily, # 30 tablet, Refills 0, Tot. Refills 0, Maintenance, 02/14/18 12:41:50 EST, Route to Pharmacy Electronically, [id number], [facility] Start Date: 02/14/18 Status: OrderedIncruse Ellipta [...] 05/21/18 9:48:13 EST, Route to Pharmacy Electronically, [id number], [facility] Start Date: 05/21/18 Status: Orderedmultivitamin Multiple Vitamins oral tablet 1 tablet, By Mouth, Daily, # 30 tablet, 0 Refills, Maintenance, 02/14/18 12:42:14 EST, Tablet, 1 tablet By Mouth Daily Start Date: 02/14/18 Status: Orderednitroglycerin 0.2 mg/hr transdermal film, extended release 1 patch, Topically, Daily, # 30 patch, 3 Refills, Maintenance, 10/03/19 7:15:00 EDT, Patch, [facility]/pharmacy #[id number], 170, cm, 07/31/19 8:30:00 EDT, Height, 124, kg, 07/29/19 13:37:00 EDT, Dry Weight Start Date: 10/03/19 Status: OrderedPantoprazole = 20 mg, By Mouth, [...] Replace Required Details, Route to Pharmacy Electronically, [facility]/pharm[facility] #[id number] Tablet, 170... Start Date: 04/27/19 Status: OrderedSEROquel 100 mg oral tablet See Instructions, 1-2 tablet By Mouth at bedtime, Refills 0, Maintenance, 12/29/18 13:11:53 EDT, Instructions Replace Required Details Start Date: 12/29/18 Status: Orderedspironolactone 25 mg oral tablet 25 mg, By Mouth, Daily, # 30 tablet, Refills 0, Tot. Refills 0, Maintenance, 05/21/18 9:49:38 EST, Route to Pharmacy Electronically, [id number], [facility] 3 Start Date: 05/21/18 Status: Orderedticagrelor 90 [...] 04/27/19 14:57:00 EST, Route to Pharmacy Electronically, [facility]/pharmacy #[id number], 170, cm, 04/27/19 9:58:00 EST, Height, [...]
--- OUTSIDE RECORDS SUMMARY | 2022-05-13 07:55 | XMS_ITS | Continuity of Care Document ---
:1960 Author Organization [facility] Address [address] [place] [address]- Care Team Providers Name Role Phone Cleveland Marie MD Primary Care Physician Encounter [facility] Date(s): 04/27/19 - 05/07/19 [facility] [address] [place] [address]- [facility] Attending Physician: Anjali Varghese Admitting Physician: AdmtrAnjali Referring Physician: AdmtrAnjali Allergies, Adverse Reactions, Alerts Substance Reaction Severity [...] 02/14/18 12:41:23 EST, Route to Pharmacy Electronically, [id number], [facility] Start Date: 02/14/18 Status: OrderedClonazepam = 0.5 mg, By Mouth, PRN Anxiety, 0 Refills, Maintenance, 02/21/19 16:10:07 EST Start Date: 02/21/19 Status: Ordereddigoxin 0.125 mg oral tablet 62.5 mcg, 0.5, tablet, By Mouth, Daily, # 15 tablet, Refills 4, Tot. Refills 4, Maintenance, 04/27/19 11:17:00 EST, Route to Pharmacy Electronically, [facility]/pharmacy #[id number], 170, cm, 04/27/19 9:58:00 EST, Height, 59, kg, 05/15/18 0:52:00 EST, Dry Weight Start Date: 04/27/19 Stop Date: 09/24/19 Status: Orderedfolic acid 1 mg oral tablet 1 mg, By Mouth, Daily, # 30 tablet, Refills 0, Tot. Refills 0, Maintenance, 02/14/18 12:41:50 EST, Route to Pharmacy Electronically, [id number], [facility] Start Date: 02/14/18 Status: OrderedIncruse [...] EDT, Tablet Start Date: 12/29/18 Status: Orderedmidodrine 10 mg oral tablet See Instructions, 1.5 tablet By Mouth 3 times a day, 0 Refills, Maintenance, 12/29/18 13:13:27 EDT, Tablet Start Date: 12/29/18 Status: Orderedmidodrine 2.5 mg oral tablet 10 mg, By Mouth, 3 times a day, # 90 tablet, Refills 3, Tot. Refills 3, Maintenance, 05/21/18 9:48:13 EST, Route to Pharmacy Electronically, [id number], [facility] Start Date: 05/21/18 Status: Orderedmultivitamin Multiple Vitamins oral tablet 1 tablet, By Mouth, Daily, # 30 tablet, 0 Refills, Maintenance, 02/14/18 12:42:14 EST, Tablet, 1 tablet By Mouth Daily Start Date: 02/14/18 Status: Orderednitroglycerin 0.2 mg/hr transdermal film, extended release 1 patch, Topically, Daily, # 30 patch, 3 Refills, Maintenance, 05/02/19 8:44:00 EST, Patch, [id number], 170, cm, 04/27/19 9:58:00 EST, Height, [...] Replace Required Details, Route to Pharmacy Electronically, [facility]/pharmacy #[id number] Tablet, 170... Start Date: 04/27/19 Status: OrderedSEROquel 100 mg oral tablet See Instructions, 1-2 tablet By Mouth at bedtime, Refills 0, Maintenance, 12/29/18 13:11:53 EDT, Instructions Replace Required Details Start Date: 12/29/18 Status: Orderedspironolactone 25 mg oral tablet 25 mg, By Mouth, Daily, # 30 tablet, Refills 0, Tot. Refills 0, Maintenance, 05/21/18 9:49:38 EST, Route to Pharmacy Electronically, [id number], [facility] 3 Start Date: 05/21/18 Status: Orderedticagrelor [...] 04/27/19 14:57:00 EST, Route to Pharmacy Electronically, [facility]/pharmacy #[id number], 170, cm, 04/27/19 9:58:00 EST, Height, [...]
--- OUTSIDE RECORDS SUMMARY | 2022-05-13 07:55 | XMS_ITS | Continuity of Care Document ---
:1960 Author Organization [facility] Address [address] [place] [address]- Care Team Providers Name Role Phone Cleveland Marie MD Primary Care Physician En[place] [facility] Date(s): 01/25/21 - 02/24/21 [facility] [address] [place] [address]- Allergies, Adverse Reactions, Alerts Substance Reaction Severity [...] 02/14/18 12:41:23 EST, Route to Pharmacy Electronically, [id number], [facility] Start Date: 02/14/18 Status: OrderedClonazepam = 0.5 mg, By Mouth, PRN Anxiety, 0 Refills, Maintenance, 02/21/19 16:10:07 EST Start Date: 02/21/19 Status: Ordereddigoxin 0.125 mg oral tablet 62.5 mcg, 0.5, tablet, By Mouth, Daily, # 15 tablet, Refills 4, Tot. Refills 4, Maintenance, 04/27/19 11:17:00 EST, Route to Pharmacy Electronically, [facility]/pharmacy #[id number], 170, cm, 04/27/19 9:58:00 EST, Height, 59, kg, 05/15/18 0:52:00 EST, Dry Weight Start Date: 04/27/19 Stop Date: 09/24/19 Status: Orderedfolic acid 1 mg oral tablet 1 mg, By Mouth, Daily, # 30 tablet, Refills 0, Tot. Refills 0, Maintenance, 02/14/18 12:41:50 EST, Route to Pharmacy Electronically, [id number], [facility] Start Date: 02/14/18 Status: [...] 05/21/18 9:48:13 EST, Route to Pharmacy Electronically, [id number], [facility] Start Date: 05/21/18 Status: Orderedmultivitamin Multiple Vitamins oral tablet 1 tablet, By Mouth, Daily, # 30 tablet, 0 Refills, Maintenance, 02/14/18 12:42:14 EST, Tablet, 1 tablet By Mouth Daily Start Date: 02/14/18 Status: Orderednitroglycerin 0.2 mg/hr transdermal film, extended release 1 patch, Topically, Daily, # 30 patch, 3 Refills, Maintenance, 10/03/19 7:15:00 EDT, Patch, [facility]/pharmacy #[id number], 170, cm, 07/31/19 8:30:00 EDT, Height, [...] Replace Required Details, Route to Pharmacy Electronically, [facility]/pharmacy #[id number] Tablet, 170... Start Date: 04/27/19 Status: OrderedSEROquel 100 mg oral tablet See Instructions, 1-2 tablet By Mouth at bedtime, Refills 0, Maintenance, 12/29/18 13:11:53 EDT, Instructions Replace Required Details Start Date: 12/29/18 Status: Orderedspironolactone 25 mg oral tablet 25 mg, By Mouth, Daily, # 30 tablet, Refills 0, Tot. Refills 0, Maintenance, 05/21/18 9:49:38 EST, Route to Pharmacy Electronically, [id number], [facility] 3 Start Date: 05/21/18 Status: Orderedticagrelor [...] 04/27/19 14:57:00 EST, Route to Pharmacy Electronically, [facility]/pharmacy #[id number], 170, cm, 04/27/19 9:58:00 EST, [...]
--- OUTSIDE RECORDS SUMMARY | 2022-05-13 07:55 | XMS_ITS | Continuity of Care Document ---
:1960 Author Organization [facility] Address [address] [place] [address]- Care Team Providers Name Role Phone Cleveland Marie MD Primary Care Physician Encounter [facility] Date(s): 08/24/19 - 08/31/19 [facility] [address] [place] [address]- [facility] Attending Physician: Rosemary Munguia MD Referring Physician: Cleveland Marie MD Allergies, Adverse [...] 02/14/18 12:41:23 EST, Route to Pharmacy Electronically, [id number], [facility] Start Date: 02/14/18 Status: Orderedbisoprolol [...] 04/27/19 11:17:00 EST, Route to Pharmacy Electronically, [facility]/pharmacy #[id number], 170, cm, 04/27/19 9:58:00 EST, Height, 59, kg, 05/15/18 0:52:00 EST, Dry Weight Start Date: 04/27/19 Stop Date: 09/24/19 Status: Orderedfolic acid 1 mg oral tablet 1 mg, By Mouth, Daily, # 30 tablet, Refills 0, Tot. Refills 0, Maintenance, 02/14/18 12:41:50 EST, Route to Pharmacy Electronically, [id number], [facility] 3 Start Date: 02/14/18 Status: OrderedIncruse [...] 05/21/18 9:48:13 EST, Route to Pharmacy Electronically, [id number], [facility] Start Date: 05/21/18 Status: Orderedmultivitamin Multiple Vitamins oral tablet 1 tablet, By Mouth, Daily, # 30 tablet, 0 Refills, Maintenance, 02/14/18 12:42:14 EST, Tablet, 1 tablet By Mouth Daily Start Date: 02/14/18 Status: Orderednitroglycerin 0.2 mg/hr transdermal film, extended release 1 patch, Topically, Daily, # 30 patch, 3 Refills, Maintenance, 05/02/19 8:44:00 EST, Patch, [facility]/pharmacy #[id number], 170, cm, 04/27/19 9:58:00 EST, [...] Replace Required Details, Route to Pharmacy Electronically, [facility]/pharmacy #[id number] Tablet, 170... Start Date: 04/27/19 Status: OrderedSEROquel 100 mg oral tablet See Instructions, 1-2 tablet By Mouth at bedtime, Refills 0, Maintenance, 12/29/18 13:11:53 EDT, Instructions Replace Required Details Start Date: 12/29/18 Status: Orderedspironolactone 25 mg oral tablet 25 mg, By Mouth, Daily, # 30 tablet, Refills 0, Tot. Refills 0, Maintenance, 05/21/18 9:49:38 EST, Route to Pharmacy Electronically, [id number], [facility] 3 Start Date: 05/21/18 Status: Orderedticagrelor [...] 04/27/19 14:57:00 EST, Route to Pharmacy Electronically, [facility]/pharmacy #[id number], 170, cm, 04/27/19 9:58:00 EST, [...]
--- OUTSIDE RECORDS SUMMARY | 2022-05-13 07:55 | XMS_ITS | Continuity of Care Document ---
:1960 Author Organization [facility] Address [address] [place] [address]- Care Team Providers Name Role Phone Cleveland Marie MD Primary Care Physician Encounter [facility] [id number] Date(s): 08/30/19 - 09/29/19 [facility] [address] [place] [address]- [facility] Attending Physician: Anjali Varghese Admitting Physician: AdmAnjali hernandez Referring Physician: AdmtrAnjali Allergies, Adverse Reactions, Alerts [...] 02/14/18 12:41:23 EST, Route to Pharmacy Electronically, [id number], [facility] Start Date: 02/14/18 Status: Orderedbisoprolol 5 mg oral tablet 1 tablet = 5 mg, By Mouth, Daily, restarted 05/17/2019, # 30 tablet, 3 Refills, Maintenance, 03/25/208:15:00 EDT, Tablet, [facility]/pharmacy #[id number], 170, cm, 06/08/19 10:02:00 EST, Height, [...] 04/27/19 11:17:00 EST, Route to Pharmacy Electronically, [facility]/pharmacy #[id number], 170, cm, 04/27/19 9:58:00 EST, Height, 59, kg, 05/15/18 0:52:00 EST, Dry Weight Start Date: 04/27/19 Stop Date: 09/24/19 Status: Orderedfolic acid 1 mg oral tablet 1 mg, By Mouth, Daily, # 30 tablet, Refills 0, Tot. Refills 0, Maintenance, 02/14/18 12:41:50 EST, Route to Pharmacy Electronically, [id number], [facility] Start Date: 02/14/18 Status: OrderedIncruse [...] 05/21/18 9:48:13 EST, Route to Pharmacy Electronically, [id number], [facility] Start Date: 05/21/18 Status: Orderedmultivitamin Multiple Vitamins oral tablet 1 tablet, By Mouth, Daily, # 30 tablet, 0 Refills, Maintenance, 02/14/18 12:42:14 EST, Tablet, 1 tablet By Mouth Daily Start Date: 02/14/18 Status: Orderednitroglycerin 0.2 mg/hr transdermal film, extended release 1 patch, Topically, Daily, # 30 patch, 3 Refills, Maintenance, 05/02/19 8:44:00 EST, Patch, [facility]/pharmacy #[id number], 170, cm, 04/27/19 9:58:00 EST, [...] Replace Required Details, Route to Pharmacy Electronically, [facility]/pharmacy #[id number] Tablet, 170... Start Date: 04/27/19 Status: OrderedSEROquel 100 mg oral tablet See Instructions, 1-2 tablet By Mouth at bedtime, Refills 0, Maintenance, 12/29/18 13:11:53 EDT, Instructions Replace Required Details Start Date: 12/29/18 Status: Orderedspironolactone 25 mg oral tablet 25 mg, By Mouth, Daily, # 30 tablet, Refills 0, Tot. Refills 0, Maintenance, 05/21/18 9:49:38 EST, Route to Pharmacy Electronically, [id number], [facility] Start Date: 05/21/18 Status: Orderedticagrelor [...] 04/27/19 14:57:00 EST, Route to Pharmacy Electronically, [facility]/pharmacy #[id number], 170, cm, 04/27/19 9:58:00 EST, [...]
--- OUTSIDE RECORDS SUMMARY | 2022-05-13 07:55 | XMS_ITS | Continuity of Care Document ---
:1960 Author Organization [facility] Address [address] [place] [address]- Care Team Providers Name Role Phone Cleveland Marie MD Primary Care Physician Encounter [facility] Date(s): 11/29/19 - 12/29/19 [facility] [address] [place] [address]- [facility] Allergies, Adverse Reactions, Alerts Substance Reaction Severity [...] 02/14/18 12:41:23 EST, Route to Pharmacy Electronically, [id number], [facility] Start Date: 02/14/18 Status: OrderedClonazepam = 0.5 mg, By Mouth, PRN Anxiety, 0 Refills, Maintenance, 02/21/19 16:10:07 EST Start Date: 02/21/19 Status: Ordereddigoxin 0.125 mg oral tablet 62.5 mcg, 0.5, tablet, By Mouth, Daily, # 15 tablet, Refills 4, Tot. Refills 4, Maintenance, 04/27/19 11:17:00 EST, Route to Pharmacy Electronically, [facility]/pharmacy #[id number], 170, cm, 04/27/19 9:58:00 EST, Height, 59, kg, 05/15/18 0:52:00 EST, Dry Weight Start Date: 04/27/19 Stop Date: 09/24/19 Status: Orderedfolic acid 1 mg oral tablet 1 mg, By Mouth, Daily, # 30 tablet, Refills 0, Tot. Refills 0, Maintenance, 02/14/18 12:41:50 EST, Route to Pharmacy Electronically, [id number], [facility] Start Date: 02/14/18 Status: [...] 05/21/18 9:48:13 EST, Route to Pharmacy Electronically, [id number], [facility] Start Date: 05/21/18 Status: Orderedmultivitamin Multiple Vitamins oral tablet 1 tablet, By Mouth, Daily, # 30 tablet, 0 Refills, Maintenance, 02/14/18 12:42:14 EST, Tablet, 1 tablet By Mouth Daily Start Date: 02/14/18 Status: Orderednitroglycerin 0.2 mg/hr transdermal film, extended release 1 patch, Topically, Daily, # 30 patch, 3 Refills, Maintenance, 10/03/19 7:15:00 EDT, Patch, [facility]/pharmacy #[id number], 170, cm, 07/31/19 8:30:00 EDT, Height, [...] Replace Required Details, Route to Pharmacy Electronically, [facility]/pharmacy #[id number] Tablet, 170... Start Date: 04/27/19 Status: OrderedSEROquel 100 mg oral tablet See Instructions, 1-2 tablet By Mouth at bedtime, Refills 0, Maintenance, 12/29/18 13:11:53 EDT, Instructions Replace Required Details Start Date: 12/29/18 Status: Orderedspironolactone 25 mg oral tablet 25 mg, By Mouth, Daily, # 30 tablet, Refills 0, Tot. Refills 0, Maintenance, 05/21/18 9:49:38 EST, Route to Pharmacy Electronically, [id number], [facility] 3 Start Date: 05/21/18 Status: Orderedticagrelor [...] 04/27/19 14:57:00 EST, Route to Pharmacy Electronically, [facility]/pharmacy #[id number], 170, cm, 04/27/19 9:58:00 [...]
--- OUTSIDE RECORDS SUMMARY | 2022-05-13 07:55 | XMS_ITS | Continuity of Care Document ---
:1960 Author Organization [facility] Address [address] [place] [address]- Care Team Providers Name Role Phone Cleveland Marie MD Primary Care Physician Encounter [facility] Date(s): 07/20/19 - 07/27/19 [facility] [address] [place] [address]- [facility] Attending Physician: Rosemary Munguia MD Referring Physician: [...] 02/14/18 12:41:23 EST, Route to Pharmacy Electronically, [id number], [facility] Start Date: 02/14/18 Status: Orderedbisoprolol 5 mg oral tablet 1 tablet = 5 mg, By Mouth, Daily, restarted 05/17/2019, # 30 tablet, 3 Refills, Maintenance, :15:00 EDT, Tablet, [facility], 170, cm, 06/08/19 10:02:00 EST, Height, 59, kg, 05/15/18 0:52:00 EST, Dry Weight Start Date: 06/29/19 Status: OrderedClonazepam = 0.5 mg, By Mouth, PRN Anxiety, 0 Refills, Maintenance, 02/21/19 16:10:07 EST Start Date: 02/21/19 Status: Ordereddigoxin 0.125 mg oral tablet 62.5 mcg, 0.5, tablet, By Mouth, Daily, # 15 tablet, Refills 4, Tot. Refills 4, Maintenance, 04/27/19 11:17:00 EST, [id number] 170, cm, 04/27/19 9:58:00 EST, Height, 59, kg, 05/15/18 0:52:00 EST, Dry Weight Start Date: 04/27/19 Stop Date: 09/24/19 Status: Orderedfolic acid 1 mg oral tablet 1 mg, By Mouth, Daily, # 30 tablet, Refills 0, Tot. Refills 0, Maintenance, 02/14/18 12:41:50 EST, Route to Pharmacy Electronically, [id number], [facility] 3 Start Date: 02/14/18 Status: OrderedIncruse Ellipta [...] 05/21/18 9:48:13 EST, Route to Pharmacy Electronically, [id number], [facility] Start Date: 05/21/18 Status: Orderedmultivitamin Multiple Vitamins oral tablet 1 tablet, By Mouth, Daily, # 30 tablet, 0 Refills, Maintenance, 02/14/18 12:42:14 EST, Tablet, 1 tablet By Mouth Daily Start Date: 02/14/18 Status: Orderednitroglycerin 0.2 mg/hr transdermal film, extended release 1 patch, Topically, Daily, # 30 patch, 3 Refills, Maintenance, 05/02/19 8:44:00 EST, Patch, [facility]/pharmacy #[id number], 170, cm, 04/27/19 9:58:00 [...] Replace Required Details, Route to Pharmacy Electronically, [facility]/pharmacy #[id number] Tablet, 170... Start Date: 04/27/19 Status: OrderedSEROquel 100 mg oral tablet See Instructions, 1-2 tablet By Mouth at bedtime, Refills 0, Maintenance, 12/29/18 13:11:53 EDT, Instructions Replace Required Details Start Date: 12/29/18 Status: Orderedspironolactone 25 mg oral tablet 25 mg, By Mouth, Daily, # 30 tablet, Refills 0, Tot. Refills 0, Maintenance, 05/21/18 9:49:38 EST, Route to Pharmacy Electronically, [id number], [facility] Start Date: 05/21/18 Status: Orderedticagrelor [...] 04/27/19 14:57:00 EST, Route to Pharmacy Electronically, [facility]/pharmacy #[id number], 170, cm, 04/27/19 9:58:00 [...]
--- OUTSIDE RECORDS SUMMARY | 2022-05-13 07:55 | XMS_ITS | Continuity of Care Document ---
:1960 Author Organization [facility] Address [address] [place] [address]- Care Team Providers Name Role Phone Cleveland Marie MD Primary Care Physician [place] [facility] Date(s): 11/28/20 - 12/28/20 [facility] [address] [place] [phone]- Allergies, Adverse Reactions, Alerts Substance Reaction Severity [...] 02/14/18 12:41:23 EST, Route to Pharmacy Electronically, [id number], [facility] Start Date: 02/14/18 Status: OrderedClonazepam = 0.5 mg, By Mouth, PRN Anxiety, 0 Refills, Maintenance, 02/21/19 16:10:07 EST Start Date: 02/21/19 Status: Ordereddigoxin 0.125 mg oral tablet 62.5 mcg, 0.5, tablet, By Mouth, Daily, # 15 tablet, Refills 4, Tot. Refills 4, Maintenance, 04/27/19 11:17:00 EST, Route to Pharmacy Electronically, [facility]/pharmacy #[id number], 170, cm, 04/27/19 9:58:00 EST, Height, 59, kg, 05/15/18 0:52:00 EST, Dry Weight Start Date: 04/27/19 Stop Date: 09/24/19 Status: Orderedfolic acid 1 mg oral tablet 1 mg, By Mouth, Daily, # 30 tablet, Refills 0, Tot. Refills 0, Maintenance, 02/14/18 12:41:50 EST, Route to Pharmacy Electronically, [id number], [facility] Start Date: 02/14/18 [...] 05/21/18 9:48:13 EST, Route to Pharmacy Electronically, [id number], [facility] Start Date: 05/21/18 Status: Orderedmultivitamin Multiple Vitamins oral tablet 1 tablet, By Mouth, Daily, # 30 tablet, 0 Refills, Maintenance, 02/14/18 12:42:14 EST, Tablet, 1 tablet By Mouth Daily Start Date: 02/14/18 Status: Orderednitroglycerin 0.2 mg/hr transdermal film, extended release 1 patch, Topically, Daily, # 30 patch, 3 Refills, Maintenance, 10/03/19 7:15:00 EDT, Patch, [facility]/pharmacy #[id number], 170, cm, 07/31/19 8:30:00 EDT, [...] Replace Required Details, Route to Pharmacy Electronically, [facility]/pharmacy #[id number] Tablet, 170... Start Date: 04/27/19 Status: OrderedSEROquel 100 mg oral tablet See Instructions, 1-2 tablet By Mouth at bedtime, Refills 0, Maintenance, 12/29/18 13:11:53 EDT, Instructions Replace Required Details Start Date: 12/29/18 Status: Orderedspironolactone 25 mg oral tablet 25 mg, By Mouth, Daily, # 30 tablet, Refills 0, Tot. Refills 0, Maintenance, 05/21/18 9:49:38 EST, Route to Pharmacy Electronically, [id number], [facility] 3 Start Date: 05/21/18 Status: Orderedticagrelor [...] 04/27/19 14:57:00 EST, Route to Pharmacy Electronically, [facility]/pharmacy #[id number], 170, cm, 04/27/19 9:58:00 EST, [...]
--- OUTSIDE RECORDS SUMMARY | 2022-05-13 07:55 | XMS_ITS | Continuity of Care Document ---
:1960 Author Organization [facility] Address [address] [place] [address]- Care Team Providers Name Role Phone Cleveland Marie MD Primary Care Physician Encounter [facility] Date(s): 08/15/19 - 09/29/19 [facility] [address] [place] [address]- [facility] Attending Physician: Farzaneh Cain NP Referring Physician: [...] 02/14/18 12:41:23 EST, Route to Pharmacy Electronically, [id number], [facility] Start Date: 02/14/18 [...] 04/27/19 11:17:00 EST, Route to Pharmacy Electronically, [facility]/pharmacy #[id number], 170, cm, 04/27/19 9:58:00 EST, Height, 59, kg, 05/15/18 0:52:00 EST, Dry Weight Start Date: 04/27/19 Stop Date: 09/24/19 Status: Orderedfolic acid 1 mg oral tablet 1 mg, By Mouth, Daily, # 30 tablet, Refills 0, Tot. Refills 0, Maintenance, 02/14/18 12:41:50 EST, Route to Pharmacy Electronically, [id number], [facility] 3 Start Date: 02/14/18 Status: OrderedIncruse Ellipta [...] 05/21/18 9:48:13 EST, Route to Pharmacy Electronically, [id number], [facility] Start Date: 05/21/18 Status: Orderedmultivitamin Multiple Vitamins oral tablet 1 tablet, By Mouth, Daily, # 30 tablet, 0 Refills, Maintenance, 02/14/18 12:42:14 EST, Tablet, 1 tablet By Mouth Daily Start Date: 02/14/18 Status: Orderednitroglycerin 0.2 mg/hr transdermal film, extended release 1 patch, Topically, Daily, # 30 patch, 3 Refills, Maintenance, 05/02/19 8:44:00 EST, Patch, [facility]/pharmacy #[id number], 170, cm, 04/27/19 9:58:00 EST, Height, [...] Replace Required Details, Route to Pharmacy Electronically, [facility]/pharmacy #[id number] Tablet, 170... Start Date: 04/27/19 Status: OrderedSEROquel 100 mg oral tablet See Instructions, 1-2 tablet By Mouth at bedtime, Refills 0, Maintenance, 12/29/18 13:11:53 EDT, Instructions Replace Required Details Start Date: 12/29/18 Status: Orderedspironolactone 25 mg oral tablet 25 mg, By Mouth, Daily, # 30 tablet, Refills 0, Tot. Refills 0, Maintenance, 05/21/18 9:49:38 EST, Route to Pharmacy Electronically, [id number], [facility] Start Date: 05/21/18 [...] 04/27/19 14:57:00 EST, Route to Pharmacy Electronically, [facility]/pharmacy #[id number], 170, cm, 04/27/19 9:58:00 EST, Height, [...]
--- OUTSIDE RECORDS SUMMARY | 2022-05-13 07:55 | XMS_ITS | Continuity of Care Document ---
:1960 Author Organization [facility] Address [address] [place] [address]- Care Team Providers Name Role Phone Cleveland Marie MD Primary Care Physician [place] [facility] [place]): [place] 05[place]27/19 [facility] [address] [place] [phone]- [facility] Attending Physician: Jona Hines DO Admitting Physician: Jona Hines DO Referring Physician: Cleveland Marie MD Allergies, Adverse [...] 02/14/18 12:41:23 EST, Route to Pharmacy Electronically, [id number], [facility] Start Date: 02/14/18 Status: Orderedbisoprolol 5 mg oral tablet 1 tablet = 5 mg, By Mouth, Daily, restarted 05/17/2019, # 90 tablet, 0 Refills, Maintenance, 208:44:00 EST, Tablet Start Date: 05/17/19 Status: OrderedClonazepam = 0.5 mg, By Mouth, PRN Anxiety, 0 Refills, Maintenance, 02/21/19 16:10:07 EST Start Date: 02/21/19 Status: Ordereddigoxin 0.125 mg oral tablet 62.5 mcg, 0.5, tablet, By Mouth, Daily, # 15 tablet, Refills 4, Tot. Refills 4, Maintenance, 04/27/19 11:17:00 EST, Route to Pharmacy Electronically, [facility]/pharmacy #[id number], 170, cm, 04/27/19 9:58:00 EST, Height, 59, kg, 05/15/18 0:52:00 EST, Dry Weight Start Date: 04/27/19 Stop Date: 09/24/19 Status: Orderedfolic acid 1 mg oral tablet 1 mg, By Mouth, Daily, # 30 tablet, Refills 0, Tot. Refills 0, Maintenance, 02/14/18 12:41:50 EST, Route to Pharmacy Electronically, [id number], [facility] Start Date: 02/14/18 Status: [...] 05/21/18 9:48:13 EST, Route to Pharmacy Electronically, [id number], [facility] Start Date: 05/21/18 Status: Orderedmultivitamin Multiple Vitamins oral tablet 1 tablet, By Mouth, Daily, # 30 tablet, 0 Refills, Maintenance, 02/14/18 12:42:14 EST, Tablet, 1 tablet By Mouth Daily Start Date: 02/14/18 Status: Orderednitroglycerin 0.2 mg/hr transdermal film, extended release 1 patch, Topically, Daily, # 30 patch, 3 Refills, Maintenance, 05/02/19 8:44:00 EST, Patch, [facility]/pharmacy #[id number], 170, cm, 04/27/19 9:58:00 EST, [...] Replace Required Details, Route to Pharmacy Electronically, [facility]/pharmacy #[id number] Tablet, 170... Start Date: 04/27/19 Status: OrderedSEROquel 100 mg oral tablet See Instructions, 1-2 tablet By Mouth at bedtime, Refills 0, Maintenance, 12/29/18 13:11:53 EDT, Instructions Replace Required Details Start Date: 12/29/18 Status: Orderedspironolactone 25 mg oral tablet 25 mg, By Mouth, Daily, # 30 tablet, Refills 0, Tot. Refills 0, Maintenance, 05/21/18 9:49:38 EST, Route to Pharmacy Electronically, [id number], [facility] 3 Start Date: 05/21/18 Status: Orderedticagrelor 90 [...] 04/27/19 14:57:00 EST, Route to Pharmacy Electronically, [facility]/pharmacy #[id number], 170, cm, 04/27/19 9:58:00 EST, [...]
--- OUTSIDE RECORDS SUMMARY | 2022-05-13 07:55 | XMS_ITS | Continuity of Care Document ---
:1960 Author Organization [facility] Address [address] [place] [address]- Care Team Providers Name Role Phone Cleveland Marie MD Primary Care Physician Encounter [facility] Date(s): 10/11/19 - 11/10/19 [facility] [address] [place] [address]- [facility] Allergies, Adverse Reactions, Alerts Substance Reaction Severity [...] 02/14/18 12:41:23 EST, Route to Pharmacy Electronically, [id number], [facility] Start Date: 02/14/18 Status: Orderedbisoprolol 5 mg oral tablet 1 tablet = 5 mg, By Mouth, Daily, # 30 tablet, 3 Refills, Maintenance, 10/24/19 7:23:00 EDT, Tablet,[id number], 170, cm, 07/31/19 8:30:00 EDT, Height, 124, kg, 07/29/19 13:37:00 EDT, Dry Weight Start Date: 10/24/19 Stop Date: 02/21/20 Status: OrderedClonazepam = 0.5 mg, By Mouth, PRN Anxiety, 0 Refills, Maintenance, 02/21/19 16:10:07 EST Start Date: 02/21/19 Status: Ordereddigoxin 0.125 mg oral tablet 62.5 mcg, 0.5, tablet, By Mouth, Daily, # 15 tablet, Refills 4, Tot. Refills 4, Maintenance, 04/27/19 11:17:00 EST, Route to Pharmacy Electronically, [facility]/pharmacy #[id number], 170, cm, 04/27/19 9:58:00 EST, Height, 59, kg, 05/15/18 0:52:00 EST, Dry Weight Start Date: 04/27/19 Stop Date: 09/24/19 Status: Orderedfolic acid 1 mg oral tablet 1 mg, By Mouth, Daily, # 30 tablet, Refills 0, Tot. Refills 0, Maintenance, 02/14/18 12:41:50 EST, Route to Pharmacy Electronically, [id number], [facility] Start Date: 02/14/18 Status: OrderedIncruse [...] 05/21/18 9:48:13 EST, Route to Pharmacy Electronically, [id number], [facility] Start Date: 05/21/18 Status: Orderedmultivitamin Multiple Vitamins oral tablet 1 tablet, By Mouth, Daily, # 30 tablet, 0 Refills, Maintenance, 02/14/18 12:42:14 EST, Tablet, 1 tablet By Mouth Daily Start Date: 02/14/18 Status: Orderednitroglycerin 0.2 mg/hr transdermal film, extended release 1 patch, Topically, Daily, # 30 patch, 3 Refills, Maintenance, 10/03/19 7:15:00 EDT, Patch, [id number], 170, cm, 07/31/19 8:30:00 EDT, Height, [...] Replace Required Details, Route to Pharmacy Electronically, [facility]/pharmacy #[id number] Tablet, 170... Start Date: 04/27/19 Status: OrderedSEROquel 100 mg oral tablet See Instructions, 1-2 tablet By Mouth at bedtime, Refills 0, Maintenance, 12/29/18 13:11:53 EDT, Instructions Replace Required Details Start Date: 12/29/18 Status: Orderedspironolactone 25 mg oral tablet 25 mg, By Mouth, Daily, # 30 tablet, Refills 0, Tot. Refills 0, Maintenance, 05/21/18 9:49:38 EST, Route to Pharmacy Electronically, [id number], [facility] 3 Start Date: 05/21/18 Status: Orderedticagrelor [...] 04/27/19 14:57:00 EST, Route to Pharmacy Electronically, [facility]/pharmacy #[id number], 170, cm, 04/27/19 9:58:00 EST, Height, [...]
--- OUTSIDE RECORDS SUMMARY | 2022-05-13 07:55 | XMS_ITS | Continuity of Care Document ---
:1960 Author Organization [facility] Address [address] [place] [address]- Care Team Providers Name Role Phone Cleveland Marie MD Primary Care Physician [place] [facility] [place]20 [place] 12/15/20 [facility] [address] [place] [address]- Allergies, Adverse Reactions, Alerts Substance Reaction Severity [...] 02/14/18 12:41:23 EST, Route to Pharmacy Electronically, [id number], [facility] Start Date: 02/14/18 Status: OrderedClonazepam = 0.5 mg, By Mouth, PRN Anxiety, 0 Refills, Maintenance, 02/21/19 16:10:07 EST Start Date: 02/21/19 Status: Ordereddigoxin 0.125 mg oral tablet 62.5 mcg, 0.5, tablet, By Mouth, Daily, # 15 tablet, Refills 4, Tot. Refills 4, Maintenance, 04/27/19 11:17:00 EST, Route to Pharmacy Electronically, [facility]/pharmacy #[id number], 170, cm, 04/27/19 9:58:00 EST, Height, 59, kg, 05/15/18 0:52:00 EST, Dry Weight Start Date: 04/27/19 Stop Date: 09/24/19 Status: Orderedfolic acid 1 mg oral tablet 1 mg, By Mouth, Daily, # 30 tablet, Refills 0, Tot. Refills 0, Maintenance, 02/14/18 12:41:50 EST, Route to Pharmacy Electronically, [id number], [facility] Start Date: 02/14/18 Status: OrderedIncruse [...] 05/21/18 9:48:13 EST, Route to Pharmacy Electronically, [id number], [facility] Start Date: 05/21/18 Status: Orderedmultivitamin Multiple Vitamins oral tablet 1 tablet, By Mouth, Daily, # 30 tablet, 0 Refills, Maintenance, 02/14/18 12:42:14 EST, Tablet, 1 tablet By Mouth Daily Start Date: 02/14/18 Status: Orderednitroglycerin 0.2 mg/hr transdermal film, extended release 1 patch, Topically, Daily, # 30 patch, 3 Refills, Maintenance, 10/03/19 7:15:00 EDT, Patch, [facility]/pharmacy #[id number], 170, cm, 07/31/19 8:30:00 EDT, [...] Replace Required Details, Route to Pharmacy Electronically, [facility]/pharmacy #[id number] Tablet, 170... Start Date: 04/27/19 Status: OrderedSEROquel 100 mg oral tablet See Instructions, 1-2 tablet By Mouth at bedtime, Refills 0, Maintenance, 12/29/18 13:11:53 EDT, Instructions Replace Required Details Start Date: 12/29/18 Status: Orderedspironolactone 25 mg oral tablet 25 mg, By Mouth, Daily, # 30 tablet, Refills 0, Tot. Refills 0, Maintenance, 05/21/18 9:49:38 EST, Route to Pharmacy Electronically, [id number], [facility] 3 Start Date: 05/21/18 Status: Orderedticagrelor [...] 04/27/19 14:57:00 EST, Route to Pharmacy Electronically, [facility]/pharmacy #[id number], 170, cm, 04/27/19 9:58:00 [...]
--- OUTSIDE RECORDS SUMMARY | 2022-05-13 07:55 | XMS_ITS | Continuity of Care Document ---
:1960 Author Organization [facility] Address [address] [place] [address]- Care Team Providers Name Role Phone Cleveland Marie MD Primary Care Physician Encounter [facility] [place] [place] [id number] Date(s): 03/16/19 - 03/26/19 [facility] [address] [place] [address]- [facility] Attending Physician: Anjali Varghese Admitting Physician: AdmAnjali [...] 02/14/18 12:41:23 EST, Route to Pharmacy Electronically, [id number], [facility] Start Date: 02/14/18 Status: OrderedBisoprolol = 5 mg, By Mouth, Daily, 0 Refills, Maintenance, 02/21/19 16:09:00 EST Start Date: 02/21/19 Status: OrderedClonazepam = 0.5 mg, By Mouth, PRN Anxiety, 0 Refills, Maintenance, 02/21/19 16:10:07 EST Start Date: 02/21/19 Status: Ordereddigoxin 0.125 mg oral tablet 0.125 mg, By Mouth, Daily, # 30 tablet, Refills 3, Tot. Refills 3, Maintenance, 05/21/18 9:47:46 EST, Route to Pharmacy Electronically, [id number], [facility] 3 Start Date: 05/21/18 Status: Orderedfolic acid 1 mg oral tablet 1 mg, By Mouth, Daily, # 30 tablet, Refills 0, Tot. Refills 0, Maintenance, 02/14/18 12:41:50 EST, Route to Pharmacy Electronically, [id number], [facility] Start Date: 02/14/18 Status: OrderedIncruse Ellipta [...] 05/21/18 9:48:13 EST, Route to Pharmacy Electronically, [id number], [facility] Start Date: 05/21/18 Status: Orderedmultivitamin Multiple Vitamins oral tablet 1 tablet, By Mouth, Daily, # 30 tablet, 0 Refills, Maintenance, 02/14/18 12:42:14 EST, Tablet, 1 tablet By Mouth Daily Start Date: 02/14/18 Status: Orderednitroglycerin 0.2 mg/hr transdermal film, extended release 1 patch, Topically, Daily, # 30 patch, 0 Refills, Maintenance, 03/02/19 16:28:01 EST, Patch Start Date: 03/02/19 Status: OrderedPantoprazole = 20 mg, By Mouth, [...] 02/09/18 11:39:32 EST Start Date: 02/09/18 Status: OrderedSEROquel 100 mg oral tablet See Instructions, 1-2 tablet By Mouth at bedtime, Refills 0, Maintenance, 12/29/18 13:11:53 EDT, Instructions Replace Required Details Start Date: 12/29/18 Status: Orderedspironolactone 25 mg oral tablet 25 mg, By Mouth, Daily, # 30 tablet, Refills 0, Tot. Refills 0, Maintenance, 05/21/18 9:49:38 EST, Route to Pharmacy Electronically, [id number], [facility] 3 Start Date: 05/21/18 Status: Orderedticagrelor [...] Maintenance, 12/29/18 13:12:38EDT Start Date: 12/29/18 Status: Ordered Problem List Condition Effective Dates [...]
--- OUTSIDE RECORDS SUMMARY | 2022-05-13 07:55 | XMS_ITS | Continuity of Care Document ---
:1960 Author Organization [facility] Address [address] [place] [address]- Care Team Providers Name Role Phone Cleveland Marie MD Primary Care Physician [place] [facility] [place] - 07/31/[address] [address]- [facility] Encounter Diagnosis Left lower lobe pneumonia (Final) - 07/28/19 Chest pain (Final) - 07/28/19 Discharge Disposition: A-D/C Home Attending Physician: Mago Quintero MD, Josue Coleman Admitting Physician: Branonn Rodrigues MD Referring Physician: Not on Staff, Referring MD Allergies, Adverse Reactions, Alerts Substance Reaction [...] 02/14/18 12:41:23 EST, Route to Pharmacy Electronically, [id number], [facility] Start Date: 02/14/18 Status: Orderedbisoprolol 5 mg oral tablet 1 tablet = 5 mg, By Mouth, Daily, restarted 05/17/2019, # 30 tablet, 3 Refills, Maintenance, 208:15:00 EDT, Tablet, [facility]/pharmacy #[id number], 170, cm, 06/08/19 10:02:00 EST, [...] 04/27/19 11:17:00 EST, [id number], cm, 04/27/19 9:58:00 EST, Height, 59, kg, 05/15/18 0:52:00 EST, Dry Weight Start Date: 04/27/19 Stop Date: 09/24/19 Status: Orderedfolic acid 1 mg oral tablet 1 mg, By Mouth, Daily, # 30 tablet, Refills 0, Tot. Refills 0, Maintenance, 02/14/18 12:41:50 EST, Route to Pharmacy Electronically, [id number], [facility] 3 Start Date: 02/14/18 Status: [...] 05/21/18 9:48:13 EST, Route to Pharmacy Electronically, [id number], [facility] Start Date: 05/21/18 Status: Orderedmultivitamin Multiple Vitamins oral tablet 1 tablet, By Mouth, Daily, # 30 tablet, 0 Refills, Maintenance, 02/14/18 12:42:14 EST, Tablet, 1 tablet By Mouth Daily Start Date: 02/14/18 Status: Orderednitroglycerin 0.2 mg/hr transdermal film, extended release 1 patch, Topically, Daily, # 30 patch, 3 Refills, Maintenance, 05/02/19 8:44:00 EST, Patch, [facility]/pharmacy #[id number], 170, cm, 04/27/19 9:58:00 EST, [...] Required Details, Route to Pharmacy Electronically, [facility]/pharmacy #[id number] Tablet, 170... Start Date: 04/27/19 Status: OrderedSEROquel 100 mg oral tablet See Instructions, 1-2 tablet By Mouth at bedtime, Refills 0, Maintenance, 12/29/18 13:11:53 EDT, Instructions Replace Required Details Start Date: 12/29/18 Status: Orderedspironolactone 25 mg oral tablet 25 mg, By Mouth, Daily, # 30 tablet, Refills 0, Tot. Refills 0, Maintenance, 05/21/18 9:49:38 EST, Route to Pharmacy Electronically, [id number], [facility] Start Date: 05/21/18 Status: Orderedticagrelor [...] 14:57:00 EST, Route to Pharmacy Electronically, [facility]/pharmacy #[id number], 170, cm, 04/27/19 9:58:00 EST, Height, 59, kg, 05/15/18 0:52:... Start Date: 04/27/19 Status: Ordered Problem List Condition Effective Dates Status Health Status Informant STEMI (ST elevation myocardial Active infarction)(Confirmed) Alcohol abuse(Confirmed) Active Anxiety(Confirmed) Active Cervical radiculopathy(Confirmed) Active CHF (congestive heart Active failure)(Confirmed) Depression(Confirmed) Active Heart failure with reduced ejection Active fraction(Confirmed) Tobacco dependence(Confirmed) Active Vertigo(Confirmed) Active Results Orders for Microbiology Reports Name Date Blood Culture 07/28/19 Blood Culture #2 07/28/19 Microbiology Reports TEST:Blood Culture STATUS:Unauthenticated BODY SITE: SOURCE:Blood COLLECTED DATE/TIME:07/28/19 5:15 PMBlood Culture SPECIMEN DESCRIPTION : BLOOD LT ARM SPECIAL REQUESTS : NONE CULTURE : NO GROWTH 3 DAYS REPORT STATUS : PRELIMINARY REPORT TEST:Blood Culture, Second Order STATUS:Unauthenticated BODY SITE: SOURCE:Blood COLLECTED DATE/TIME:07/28/19 5:15 PMBlood Culture, Second Order SPECIMEN DESCRIPTION : BLOOD RT AC SPECIAL REQUESTS : NONE CULTURE : NO GROWTH 3 DAYS REPORT STATUS : PRELIMINARY REPORT Radiology Reports Exam Date Time Procedure Performing Provider Status 07/28/19 4:05 PM Chest Portable Alysia Sheriff; Auth (Verif ied) Notes:(Chest Portable) Reason For Exam: Shortness of BreathRESULT: Chest Portable Chest Portable Indication: Shortness of breath. COMPARISON: 05/14/2018 FINDINGS: LINES AND TUBES: None. LUNGS AND PLEURA: New left basilar consolidation and trace left pleural effusion. No pleural effusion. No pneumothorax. HEART, MEDIASTINUM AND SABI: Mild prominence of the cardiac silhouette, unchanged. Normal mediastinal and hilar contour. BONES AND SOFT TISSUES: No acute abnormality. IMPRESSION: New left basilar consolidation concerning for pneumonia. New trace left pleural effusion. A [place] message has been communicated via the [employer] system on 07/28/2019 4:09 PM, Message ID [id number]. WSN: [id number] Ordering Physician: Joey Jones Dictated By: Pedro Rodas MD Dictated Date/Time: 07/28/19 4:09 pm Reviewed By: Pedro Rodas MD Signed By: Pedro Rodas MD Signed Date/Time: 07/28/19 4:09 pm Transcribed By: ODALYS Transcribed Date/Time: 07/28/19 4:08 pm Vital Signs Most recent to oldest 1 2 3 [Reference Range]: Height 170 cm 170 cm 170 cm (07/31/19 8:30 AM) (07/31/19 1:33 AM) (07/30/19 8:2 8 PM) Weight 55.0 kg 55.0 kg 55.0 kg (07/31/19 9:19 AM) (07/31/19 7:10 AM) (07/30/19 6:3 2 AM) Oxygen Saturation [94-100 94 % 92 % 93 % %] (07/31/19 8:30 AM) *L* *L* (07/31/19 1:33 AM) (07/30/19 8:28 PM) Pulse Rate [55-90 bpm] 61 bpm 61 bpm 56 bpm (07/31/19 9:06 AM) (07/31/19 8:30 AM) (07/31/19 1:3 3 AM) Body Mass Index 19.2 [18.5-24.99] (07/29/19 1:37 PM) Blood Pressure 101/64 mm Hg 101/64 mm Hg 99/59 mm Hg [90-138/55-84 mm Hg] (07/31/19 9:06 AM) (07/31/19 8:30 AM) ( 0 1:33 AM) Respiratory Rate [16-30 18 br/min 18 br/min 16 br/mi n br/min] (07/31/19 9:06 AM) (07/31/19 8:30 AM) (07/31/19 1:3 3 AM) Temperature [96.8-100.4 97.9 DegF 98.6 DegF 97.6 Deg F DegF] (07/31/19 8:30 AM) (07/31/19 1:33 AM) (07/30/19 8:2 8 PM) Mode of Delivery (Oxygen) Room air Room air Room a ir (07/31/19 8:30 AM) (07/31/19 1:33 AM) (07/30/19 8:2 8 PM) Blood pressure sites Arm, left Arm, left Arm, left (07/31/19 8:30 AM) (07/31/19 1:33 AM) (07/30/19 8:2 8 PM) Temperature Route Temporal Temporal Temporal (07/31/19 8:30 AM) (07/31/19 1:33 AM) (07/30/19 8:2 8 PM) Dry Weight 124 kg (07/29/19 1:37 PM) Weight Obtained Via Bed scale (07/29/19 1:37 PM) Dry Weight Obtained Via Patient/family stated (07/29/19 1:37 PM) Social History Social History Type Response Tobacco Use: quit smoking June 2018 , currently using nicotene patch. Sex Male
--- OUTSIDE RECORDS SUMMARY | 2022-05-13 07:55 | XMS_ITS | Continuity of Care Document ---
:1960 Author Organization [facility] Address [address] [place] [phone]- Care Team Providers Name Role Phone Cleveland Marie MD Primary Care Physician [facility] Date(s): 01/02/20 - 02/01/20 [facility] [address] [place] [address]- [facility] Allergies, Adverse Reactions, Alerts Substance Reaction Severity [...] 02/14/18 12:41:23 EST, Route to Pharmacy Electronically, [id number], [facility] Start Date: 02/14/18 Status: OrderedClonazepam = 0.5 mg, By Mouth, PRN Anxiety, 0 Refills, Maintenance, 02/21/19 16:10:07 EST Start Date: 02/21/19 Status: Ordereddigoxin 0.125 mg oral tablet 62.5 mcg, 0.5, tablet, By Mouth, Daily, # 15 tablet, Refills 4, Tot. Refills 4, Maintenance, 04/27/19 11:17:00 EST, Route to Pharmacy Electronically, [facility]/pharmacy #[id number], 170, cm, 04/27/19 9:58:00 EST, Height, 59, kg, 05/15/18 0:52:00 EST, Dry Weight Start Date: 04/27/19 Stop Date: 09/24/19 Status: Orderedfolic acid 1 mg oral tablet 1 mg, By Mouth, Daily, # 30 tablet, Refills 0, Tot. Refills 0, Maintenance, 02/14/18 12:41:50 EST, Route to Pharmacy Electronically, [id number], [facility] Start Date: 02/14/18 Status: [...] 05/21/18 9:48:13 EST, Route to Pharmacy Electronically, [id number], [facility] Start Date: 05/21/18 Status: Orderedmultivitamin Multiple Vitamins oral tablet 1 tablet, By Mouth, Daily, # 30 tablet, 0 Refills, Maintenance, 02/14/18 12:42:14 EST, Tablet, 1 tablet By Mouth Daily Start Date: 02/14/18 Status: Orderednitroglycerin 0.2 mg/hr transdermal film, extended release 1 patch, Topically, Daily, # 30 patch, 3 Refills, Maintenance, 10/03/19 7:15:00 EDT, Patch, [facility]/pharmacy #[id number], 170, cm, 07/31/19 8:30:00 EDT, [...] Replace Required Details, Route to Pharmacy Electronically, [facility]/pharmacy #[id number] Tablet, 170... Start Date: 04/27/19 Status: OrderedSEROquel 100 mg oral tablet See Instructions, 1-2 tablet By Mouth at bedtime, Refills 0, Maintenance, 12/29/18 13:11:53 EDT, Instructions Replace Required Details Start Date: 12/29/18 Status: Orderedspironolactone 25 mg oral tablet 25 mg, By Mouth, Daily, # 30 tablet, Refills 0, Tot. Refills 0, Maintenance, 05/21/18 9:49:38 EST, Route to Pharmacy Electronically, [id number], [facility] 3 Start Date: 05/21/18 Status: [...] 04/27/19 14:57:00 EST, Route to Pharmacy Electronically, [facility]/pharmacy #[id number], 170, cm, 04/27/19 9:58:00 EST, [...]
--- OUTSIDE RECORDS SUMMARY | 2022-05-13 07:55 | XMS_ITS | Continuity of Care Document ---
:1960 Author Organization [facility] Address [address] [place] [address]- Care Team Providers Name Role Phone Cleveland Marie MD Primary Care Physician [place] [facility] [place] 02/17/21 [facility] [address] [place] [id number]- Allergies, Adverse Reactions, Alerts Substance Reaction Severity [...] 02/14/18 12:41:23 EST, Route to Pharmacy Electronically, [id number], [facility] Start Date: 02/14/18 Status: OrderedClonazepam = 0.5 mg, By Mouth, PRN Anxiety, 0 Refills, Maintenance, 02/21/19 16:10:07 EST Start Date: 02/21/19 Status: Ordereddigoxin 0.125 mg oral tablet 62.5 mcg, 0.5, tablet, By Mouth, Daily, # 15 tablet, Refills 4, Tot. Refills 4, Maintenance, 04/27/19 11:17:00 EST, Route to Pharmacy Electronically, [facility]/pharmacy #[id number], 170, cm, 04/27/19 9:58:00 EST, Height, 59, kg, 05/15/18 0:52:00 EST, Dry Weight Start Date: 04/27/19 Stop Date: 09/24/19 Status: Orderedfolic acid 1 mg oral tablet 1 mg, By Mouth, Daily, # 30 tablet, Refills 0, Tot. Refills 0, Maintenance, 02/14/18 12:41:50 EST, Route to Pharmacy Electronically, [id number], [facility] Start Date: 02/14/18 Status: [...] 05/21/18 9:48:13 EST, Route to Pharmacy Electronically, [id number], [facility] Start Date: 05/21/18 Status: Orderedmultivitamin Multiple Vitamins oral tablet 1 tablet, By Mouth, Daily, # 30 tablet, 0 Refills, Maintenance, 02/14/18 12:42:14 EST, Tablet, 1 tablet By Mouth Daily Start Date: 02/14/18 Status: Orderednitroglycerin 0.2 mg/hr transdermal film, extended release 1 patch, Topically, Daily, # 30 patch, 3 Refills, Maintenance, 10/03/19 7:15:00 EDT, Patch, [facility]/pharmacy #[id number], 170, cm, 07/31/19 8:30:00 EDT, [...] Replace Required Details, Route to Pharmacy Electronically, [facility]/pharmacy #[id number] Tablet, 170... Start Date: 04/27/19 Status: OrderedSEROquel 100 mg oral tablet See Instructions, 1-2 tablet By Mouth at bedtime, Refills 0, Maintenance, 12/29/18 13:11:53 EDT, Instructions Replace Required Details Start Date: 12/29/18 Status: Orderedspironolactone 25 mg oral tablet 25 mg, By Mouth, Daily, # 30 tablet, Refills 0, Tot. Refills 0, Maintenance, 05/21/18 9:49:38 EST, Route to Pharmacy Electronically, [id number], [facility] 3 Start Date: 05/21/18 Status: Orderedticagrelor [...] 04/27/19 14:57:00 EST, Route to Pharmacy Electronically, [facility]/pharmacy #[id number], 170, cm, 04/27/19 [...]
--- OUTSIDE RECORDS SUMMARY | 2022-05-13 07:56 | XMS_ITS | Continuity of Care Document ---
:1960 Author Organization [facility] Address [address] [place] [address]- Care Team Providers Name Role Phone Cleveland Marie MD Primary Care Physician [place] [facility] [place] 05/03/[address] [address]- [facility] Attending Physician: Jona Hines DO Allergies, Adverse Reactions, Alerts Substance Reaction Severity [...] 02/14/18 12:41:23 EST, Route to Pharmacy Electronically, [id number], [facility] Start Date: 02/14/18 Status: OrderedClonazepam = 0.5 mg, By Mouth, PRN Anxiety, 0 Refills, Maintenance, 02/21/19 16:10:07 EST Start Date: 02/21/19 Status: Ordereddigoxin 0.125 mg oral tablet 62.5 mcg, 0.5, tablet, By Mouth, Daily, # 15 tablet, Refills 4, Tot. Refills 4, Maintenance, 04/27/19 11:17:00 EST, Route to Pharmacy Electronically, [facility]/pharmacy #[id number], 170, cm, 04/27/19 9:58:00 EST, Height, 59, kg, 05/15/18 0:52:00 EST, Dry Weight Start Date: 04/27/19 Stop Date: 09/24/19 Status: Orderedfolic acid 1 mg oral tablet 1 mg, By Mouth, Daily, # 30 tablet, Refills 0, Tot. Refills 0, Maintenance, 02/14/18 12:41:50 EST, Route to Pharmacy Electronically, [id number], [facility] Start Date: 02/14/18 Status: [...] 05/21/18 9:48:13 EST, Route to Pharmacy Electronically, [id number], [facility] Start Date: 05/21/18 Status: Orderedmultivitamin Multiple Vitamins oral tablet 1 tablet, By Mouth, Daily, # 30 tablet, 0 Refills, Maintenance, 02/14/18 12:42:14 EST, Tablet, 1 tablet By Mouth Daily Start Date: 02/14/18 Status: Orderednitroglycerin 0.2 mg/hr transdermal film, extended release 1 patch, Topically, Daily, # 30 patch, 3 Refills, Maintenance, 05/02/19 8:44:00 EST, Patch, [facility]/pharmacy #[id number], 170, cm, 04/27/19 9:58:00 EST, [...] Replace Required Details, Route to Pharmacy Electronically, [facility]/pharmacy #[id number] Tablet, 170... Start Date: 04/27/19 Status: OrderedSEROquel 100 mg oral tablet See Instructions, 1-2 tablet By Mouth at bedtime, Refills 0, Maintenance, 12/29/18 13:11:53 EDT, Instructions Replace Required Details Start Date: 12/29/18 Status: Orderedspironolactone 25 mg oral tablet 25 mg, By Mouth, Daily, # 30 tablet, Refills 0, Tot. Refills 0, Maintenance, 05/21/18 9:49:38 EST, Route to Pharmacy Electronically, [id number], [facility] 3 Start Date: 05/21/18 Status: Orderedticagrelor [...] 04/27/19 14:57:00 EST, Route to Pharmacy Electronically, [facility]/pharmacy #[id number], 170, cm, 04/27/19 9:58:00 EST, [...]
[2022-05-13] MEDS: ondansetron HCL 4 MG/2 ML VIAL IVPUSH (08:02)
[2022-05-13] MEDS: oxyCODONE HCl Immed Release 5 MG TABLET 10 MG PO (08:02)
[2022-05-13] MEDS: clonazePAM 1 MG TABLET PO (08:02)
[2022-05-13 08:16] LABS: MANUAL DIFF FLAG NO
[2022-05-13 08:21] LABS: Basophils Absolute Auto 0.1 X10*3/uL (0.0-0.2); Eosinophils Absolute Auto 0.1 X10*3/uL (0.0-0.4); Eosinophils Percent Auto 1.4 % (0-4); Hematocrit 42.7 % (42.0-52.0); Hemoglobin 14.1 g/dl (14.0-18.0); Imm Gran Abs Auto 0.01 X10*3/uL (0.00-0.03); Imm Gran Pct Auto 0.2 % (0.0-0.4); Lymphocytes Absolute Auto 1.1 X10*3/uL (1.2-4.9); Lymphocytes Percent Auto 17.9 % (20-40); Mean Corpuscular Hemoglobin 31.9 pg (27.0-33.0); Mean Corpuscular Volume 96.6 fL (80.0-98.0); Monocytes Absolute Auto 0.6 X10*3/uL (0.1-1.2); Monocytes Percent Auto 9.4 % (2-11); Neutrophils Absolute Auto 4.4 x10*3/uL (2.0-8.3); Neutrophils Percent Auto 70.1 % (45-73); Platelet Count 189 X10*3/uL (160-400); Red Blood Count 4.42 X10*6/uL (4.60-5.80); Red Cell Distribution Width 16.7 % (11.0-16.0); White Blood Count 6.3 X10*3/uL (4.8-10.8)
[2022-05-13 08:24] LABS: INTERNATIONAL NORM RATIO 1.4 (0.9-1.1); Prothrombin Time 16.8 SEC (10.0-13.1)
[2022-05-13 08:29] VITALS: BP 108/73; PULSE 84; RESP 18; O2SAT 98
[2022-05-13 08:40] LABS: Alanine Aminotransferase 13 U/L (0-40); Albumin Level 4.3 g/dL (3.5-5.0); Alkaline Phosphatase 251 U/L (39-117); Aspartate Amino Transferase 20 U/L (5-37); Bilirubin Total 2.6 mg/dL (0.0-1.0); Blood Urea Nitrogen 21 mg/dL (9-16); Calcium 9.5 mg/dL (8.4-10.2); Creatinine Clr Calc Pharmacy 42.3; Estimated Glomerular Filt Rate 49; Glucose Random 108 mg/dL (60-115); Total Protein 7.6 g/dL (6.5-8.0)
[2022-05-13 08:49] LABS: Anion Gap 22 (12-20); Carbon Dioxide 23 mmol/L (22-29); Chloride 99 mmol/L (96-108); Potassium 4.2 mmol/L (3.3-5.1); Sodium 140 mmol/L (135-145)
[2022-05-13 08:54] LABS: COVID-19 Test Negative (Negative); IDNOW Serial# BCCEAD1C
[2022-05-13 08:58] LABS: Troponin-I High Sensitivity 7.7 ng/L (<3.5-35.0)
[2022-05-13 10:17] VITALS: BP 105/73; PULSE 82; RESP 14; O2SAT 95
[2022-05-13] MEDS: Loratadine 10 MG TABLET PO (10:44)
[2022-05-13 11:15] LABS: Troponin-I High Sensitivity 7.7 ng/L (<3.5-35.0)
--- NOTE | 2022-05-13 11:22 | PC.NURSE ---
assumed care of pt at 1100, pt resting quietly, RR even and unlabored, no new orders at this time.
[2022-05-13 12:45] VITALS: BP 106/77; PULSE 78; RESP 12; O2SAT 94
--- NOTE | 2022-05-13 12:45 | PC.NURSE ---
spoke w sister, on her way to pepper picker pt.
== END 2022-05-13 12:53 | disposition home or self-care (01) ==
PROVIDERS: Emergency Provider Emergency Medicine; PCP Internal Medicine
DX: R07.89 Other chest pain (principal); I25.10 Atherosclerotic heart disease of native coronary artery without angina pectoris; F17.210 Nicotine dependence, cigarettes, uncomplicated; Z20.822 Contact with and (suspected) exposure to COVID-19; Z20.828 Contact with and (suspected) exposure to other viral communicable diseases; Z71.6 Tobacco abuse counseling; Z79.899 Other long term (current) drug therapy
CPT/HCPCS: 36415; 71045; 80053; 84484; 85025; 85610; 87635; 93005; 96374; 99284; J2405

== ENCOUNTER 2022-07-01 08:12 | Outpatient (REF) | payer OTHER, SELFPAY ==
[2022-07-01 08:27] LABS: MANUAL DIFF FLAG NO
[2022-07-01 09:19] LABS: Basophils Absolute Auto 0.1 X10*3/uL (0.0-0.2); Basophils Percent Auto 1.3 % (0-2); Eosinophils Absolute Auto 0.2 X10*3/uL (0.0-0.4); Hematocrit 39.7 % (42.0-52.0); Hemoglobin 13.3 g/dl (14.0-18.0); Imm Gran Abs Auto 0.03 X10*3/uL (0.00-0.03); Imm Gran Pct Auto 0.6 % (0.0-0.4); Lymphocytes Absolute Auto 1.4 X10*3/uL (1.2-4.9); Lymphocytes Percent Auto 26.8 % (20-40); Mean Corpuscular HGB Conc 33.5 g/dl (31.0-36.0); Mean Corpuscular Hemoglobin 30.7 pg (27.0-33.0); Mean Corpuscular Volume 91.7 fL (80.0-98.0); Mean Platelet Volume 10.5 fL (9.4-12.4); Monocytes Absolute Auto 0.6 X10*3/uL (0.1-1.2); Neutrophils Percent Auto 57.3 % (45-73); Platelet Count 205 X10*3/uL (160-400); Red Blood Count 4.33 X10*6/uL (4.60-5.80); Red Cell Distribution Width 20.8 % (11.0-16.0); White Blood Count 5.3 X10*3/uL (4.8-10.8)
[2022-07-01 09:55] LABS: Digoxin 0.3 ng/mL (0.8-2.0)
[2022-07-01 09:58] LABS: Appearance Urine Clear; Glucose Urine UA Negative (Negative); Leukocyte Esterase Urine Negative (Negative); Specific Gravity - Urine 1.025 (1.005-1.025); UMIC TRIGGER UACC YES; Urine Blood Negative (Negative); Urine Ketones Trace mg/dL (Negative); Urine Protein 30 (1+) mg/dL (Neg-Trace)
[2022-07-01 10:10] LABS: B Type Natriuretic Peptide 2836 pg/mL (<100)
[2022-07-01 10:20] LABS: Color Urine Orange
[2022-07-01 10:22] LABS: Bacteria Urine None Seen (None Seen); Hyaline Casts Urine 0-2 /LPF (0-2); RBC Urine 0-2 /HPF (0-2); Squamous Epithelial Cell Urine 0-2 /HPF (0-2); WBC Urine 0-5 /HPF (0-5)
[2022-07-01 10:36] LABS: Alanine Aminotransferase 11 U/L (0-40); Albumin Level 3.7 g/dL (3.5-5.0); Alkaline Phosphatase 216 U/L (39-117); Anion Gap 16 (12-20); Aspartate Amino Transferase 24 U/L (5-37); Bilirubin Total 4.2 mg/dL (0.0-1.0); Blood Urea Nitrogen 17 mg/dL (9-16); Calcium 9.1 mg/dL (8.4-10.2); Carbon Dioxide 29 mmol/L (22-29); Chloride 100 mmol/L (96-108); Cholesterol 102 mg/dL; Estimated Glomerular Filt Rate > 60; Glucose Fasting 97 mg/dL (60-99); HDL Cholesterol 26 mg/dL; LDL Cholesterol Calculated 58 mg/dl; Potassium 3.6 mmol/L (3.3-5.1); Sodium 141 mmol/L (135-145); Total Protein 6.6 g/dL (6.5-8.0); Triglycerides 91 mg/dL
[2022-07-01 10:38] LABS: TSH reflex Free T4 2.54 uIU/mL (0.32-4.0); Vitamin D 25-OH Total 12.3 ng/mL (>30)
== END 2022-07-01 08:13 | disposition home or self-care (01) ==
LOC: HO.LAB 08:12
PROVIDERS: PCP Internal Medicine; Visit Provider Internal Medicine
DX: I11.0 Hypertensive heart disease with heart failure (principal); I50.20 Unspecified systolic (congestive) heart failure; E55.9 Vitamin D deficiency, unspecified; E78.00 Pure hypercholesterolemia, unspecified; Z79.899 Other long term (current) drug therapy
CPT/HCPCS: 36415; 80053; 80061; 80162; 81001; 81003; 82306; 83880; 84443; 85025

== ENCOUNTER 2022-08-24 10:46 | Emergency (ER) | payer OTHER, SELFPAY ==
[2022-08-24 10:54] VITALS: BP 108/84; PULSE 90; RESP 20; TEMP 35.9; O2SAT 95; O2SAT 98; BMI 21.2
[2022-08-24 10:57] LABS: Glucose, Whole Blood 103 mg/dL (60-115)
--- NOTE | 2022-08-24 11:03 | PC.NURSE ---
pt coming from home, AOx3. reporting chest pain and generalized weakness to EMS. EMS reported that POC was 40 and they administered D10. Second POC was 37. During triage, pt POC was 103. Pt has CHF and is on hospice. lung sounds clear bilaterally. EMS placed pt on 4L O2. in triage sats strong at 96% room air.
[2022-08-24] MEDS: LORazepam 2 MG/ML VIAL 1 MG IVPUSH (11:24)
[2022-08-24] MEDS: Morphine Sulfate 4 MG/ML CARTRIDGE IVPUSH (11:24)
--- OUTSIDE RECORDS SUMMARY | 2022-08-24 11:26 | XMS_ITS | Continuity of Care Document ---
Author Name Unknown Organization [facility] Address [address] [place] [id number]- Care Team Providers Care Stonemason Name Role Phone Cleveland Marie MD Primary Care Physician [phone] [place]counter [facility] [place] 06/08/19 - 08/19/19 [facility] [address] [place] [id number]- [facility] Attending Physician: Rosemary Munguia MD Admitting Physician: Rosemary Munguia MD Referring Physician: Cleveland Marie MD Allergies, Adverse Reactions, Alerts Substance Reaction Severity Status Apples Active Bananas Active Pineapple Active Immunizations Given and Recorded Vaccine Date Status Refusal Reason pneumococcal 23-valent vaccine 05/16/18 Given influenza virus vaccine, inactivated 02/12/18 Give n Not Given Vaccine Date Status Refusal Reason pneumococcal 23-valent vaccine 02/14/18 Not Given Patient Refuses Medications amantadine 100 mg oral tablet 1 tablet = 100 mg, By Mouth, Daily at bedtime, # 20 tablet, 0 Refills, Maintenance, 02/09/18 11:36:10 EST, Tablet Start Date: 02/09/18 Stop Date: 02/19/18 Status: Ordered aspirin 81 mg oral delayed release tablet 81 mg, By Mouth, Daily, # 30 tablet, Refills 0, Tot. Refills 0, Maintenance, 02/14/18 12:41:23 EST,Route to Pharmacy Electronically, [id number], [facility] Start Date: 02/14/18 Status: Ordered bisoprolol 5 mg oral tablet 1 tablet = 5 mg, By Mouth, Daily, restarted 05/17/2019, # 30 tablet, 3 Refills, Maintenance, 06/29/19 8:15:00 EDT, Tablet, [facility]/pharmacy #[id number], 170, cm, 06/08/19 10:02:00 EST, Height, 59, kg, 05/15/18 0:52:00 EST, Dry Weight Start Date: 06/29/19 Status: Ordered Clonazepam = 0.5 mg, By Mouth, PRN Anxiety, 0 Refills, Maintenance, 02/21/19 16:10:07 EST Start Date: 02/21/19 Status: Ordered digoxin 0.125 mg oral tablet 62.5 mcg, 0.5, tablet, By Mouth, Daily, # 15 tablet, Refills 4, Tot. Refills 4, Maintenance, 04/27/19 11:17:00 EST, [id number], cm, 04/27/19 9:58:00 EST, Height, 59, kg, 05/15/18 0:52:00 EST, Dry Weight Start Date: 04/27/19 Stop Date: 09/24/19 Status: Ordered folic acid 1 mg oral tablet 1 mg, By Mouth, Daily, # 30 tablet, Refills 0, Tot. Refills 0, Maintenance, 02/14/18 12:41:50 EST, Route to Pharmacy Electronically, [id number], [facility] Start Date: 02/14/18 Status: Ordered Incruse Ellipta 62.5 mcg/inh inhalation powder Inhalation, Every 24 hours, 0 Refills, Maintenance, 02/21/19 16:08:15 EST Start Date: 02/21/19 Status: Ordered Lidoderm 5% film 1 patch, Topically, Daily, # 14 patch, 0 Refills, Maintenance, 03/09/18 11:09:38 EST, 1 patch Topically Daily,x14 days Start Date: 03/09/18 Stop Date: 03/23/18 Status: Ordered Lipitor 80 mg oral tablet 1 tablet = 80 mg, By Mouth, Daily at bedtime, # 30 tablet, 0 Refills, Maintenance, Tablet, Print Requisition Start Date: 03/01/18 Stop Date: 03/31/18 Status: Ordered loratadine 10 mg oral tablet 10 mg, 1, tablet, By Mouth, Daily, # 30 tablet, Refills 0, Maintenance, 02/09/18 11:36:53 EST Start Date: 02/09/18 Status: Ordered Melatonin 5 mg oral tablet 1 tablet = 5 mg, By Mouth, Daily at bedtime, PRN for insomnia, # 60 tablet, 0 Refills, Maintenance,12/29/18 13:12:52 EDT, Tablet Start Date: 12/29/18 Status: Ordered midodrine 2.5 mg oral tablet 10 mg, By Mouth, 3 times a day, # 90 tablet, Refills 3, Tot. Refills 3, Maintenance, 05/21/18 9:48:13 EST, Route to Pharmacy Electronically, [id number], [facility] Start Date: 05/21/18 Status: Ordered multivitamin Multiple Vitamins oral tablet 1 tablet, By Mouth, Daily, # 30 tablet, 0 Refills, Maintenance, 02/14/18 12:42:14 EST, Tablet, 1 tablet By Mouth Daily Start Date: 02/14/18 Status: Ordered nitroglycerin 0.2 mg/hr transdermal film, extended release 1 patch, Topically, Daily, # 30 patch, 3 Refills, Maintenance, 05/02/19 8:44:00 EST, Patch, [facility]/pharmacy #[id number], 170, cm, 04/27/19 9:58:00 EST, Height, 59, kg, 05/15/18 0:52:00 EST, Dry Weight Start Date: 05/02/19 Status: Ordered Pantoprazole = 20 mg, By Mouth, Daily, 0 Refills, Maintenance, 02/21/19 16:08:29 EST Start Date: 02/21/19 Status: Ordered Plavix 75 mg oral tablet 75 mg, 1, tablet, By Mouth, Daily, # 30 tablet, Refills 0, Maintenance, 10/20/18 16:40:48 EDT Start Date: 10/20/18 Status: Ordered ProAir HFA 90 mcg/inh inhalation aerosol with adapter 2, puffs, Inhalation, 2 times a day, Refills 0, Maintenance, 02/21/19 16:09:28 EST Start Date: 02/21/19 Status: Ordered PROzac 20 mg oral capsule 20 mg, 1, capsule, By Mouth, Daily in AM, # 60 capsule, Refills 0, Maintenance, 02/09/18 11:39:32 EST Start Date: 02/09/18 Status: Ordered Senna 8.6 mg oral tablet See Instructions, PRN, 1-2 tablets daily at bedtime, # 100 tablet, Refills 1, Tot. Refills 1, Maintenance, for constipation, 04/27/19 14:56:00 EST, Instructions Replace Required Details, Route to Pharmacy Electronically, [facility]acy #[id number] Tablet, 170... Start Date: 04/27/19 Status: Ordered SEROquel 100 mg oral tablet See Instructions, 1-2 tablet By Mouth at bedtime, Refills 0, Maintenance, 12/29/18 13:11:53 EDT, Instructions Replace Required Details Start Date: 12/29/18 Status: Ordered spironolactone 25 mg oral tablet 25 mg, By Mouth, Daily, # 30 tablet, Refills 0, Tot. Refills 0, Maintenance, 05/21/18 9:49:38 EST, Route to Pharmacy Electronically, [id number], [facility] 3 Start Date: 05/21/18 Status: Ordered ticagrelor 90 mg oral tablet 1 tablet = 90 mg, By Mouth, 2 times a day, # 180 tablet, 1 Refills, Maintenance, 09/14/18 9:16:54 EDT, Tablet Start Date: 09/14/18 Stop Date: 03/13/19 Status: Ordered torsemide 20 mg oral tablet 2 tablet = 40 mg, By Mouth, 2 times a day, Reduce to 20mg BID when wt <126lbs, # 120 tablet, 11 Refills, Maintenance, 02/21/19 16:52:40 EST Start Date: 02/21/19 Status: Ordered traZODone 50 mg oral tablet 50 mg, 1, tablet, By Mouth, Daily at bedtime, # 30 tablet, Refills 0, Maintenance, 12/29/18 13:12:38 EDT Start Date: 12/29/18 Status: Ordered Tylenol 325 mg oral tablet 650 mg, 2, tablet, By Mouth, Every 6 hours, PRN, # 120 tablet, Refills 1, Tot. Refills 1, Maintenance, for pain, 04/27/19 14:57:00 EST, Route to Pharmacy Electronically, [facility]/pharmacy #[id number], 170, cm, 04/27/19 9:58:00 EST, Height, 59, kg, 05/15/18 0:52:... Start Date: 04/27/19 Status: Ordered Problem List Condition Effective Dates Status Health Status Inform ant STEMI (ST elevation myocardi al infarction)(Confirmed) Active Alcohol abuse(Confirmed) Active Anxiety(Confirmed) Active Cervical radiculopathy(Confirmed) Active CHF (congestive heart failure)(Confirmed) Active Depression(Confirmed) Active Heart failure with reduced e jection fraction(Confirmed) Active Tobacco dependence(Confirmed) Active Vertigo(Confirmed) Active Social History Social History Type Response Tobacco Use: quit smoking [facility] 2019, currently using nicotene patch. Sex Male
--- NOTE | 2022-08-24 11:28 | ED.GENADULT ---
HPI - General Adult General Chief complaint: General Medical Stated complaint: LOW BS 40,CP PER EMS Time Seen by Provider: 08/24/22 10:50 Source: patient, family and EMS Mode of arrival: EMS Limitations: no limitations History of Present Illness HPI narrative: This is a 62-year-old male who has a history of congestive heart failure with an EF of 15% who is currently on hospice who presents to the ER from home with concern for low blood sugar. Per EMS family called as the patient was complaining of generalized body pain, patient feeling weak and lightheaded and on their arrival his blood sugar was 45. Patient received 12.5 of IV dextrose. Patient reports for the last 3-4 days he has had decreased oral intake and has not had much of an appetite. He reports he is currently on hospice and has been on hospice for 3 years. He does live alone but reports that he has a sister who is quite involved in his care and helps him make his medical decisions. Patient arrives with a MOLST which states DNR, DNI, do not transfer to hospital, do not use noninvasive ventilation. Patient's blood sugar on arrival was greater than 100. He is asking me to speak to his sister before we perform any invasive procedure Related Data Home Medications Medication Instructions Recorded Confirmed atropine 1 % eye drops 1 drp PO Q4-6H PRN 04/16/20 11/26/21 docusate sodium 100 mg capsule 100 mg PO BID PRN 04/16/20 11/26/21 fluoxetine 20 mg capsule 20 mg PO QAM 04/16/20 11/26/21 hydrocortisone 2.5 % topical cream 1 appl topical TID PRN 04/16/20 11/26/21 ketoprofen 10 % topical cream in appl topical BID PRN 04/16/20 11/26/21 packet midodrine 10 mg tablet 15 mg PO TID 04/16/20 11/26/21 nystatin 100,000 unit/gram topical topical 04/16/20 11/26/21 cream saliva stimulant comb. no.3 1 appl mucous membrane Q3H PRN 04/16/20 11/26/21 (Biotene Moisturizing Mouth mucosal spray) gabapentin 800 mg tablet 800 mg PO BID 06/18/20 11/26/21 sennosides 8.6 mg tablet 8.6 mg PO BEDTIME PRN constipation 06/18/20 11/26/21 trazodone 50 mg tablet 50 mg PO BEDTIME PRN 06/18/20 11/26/21 Oxygen Home Use 06/03/21 11/26/21 Previous Rx's Medication Instructions Recorded fluticasone propionate 50 1 spray intranasal DAILY #150 mL 10/09/20 mcg/actuation nasal spray,suspension (Flonase Allergy Relief) fluticasone propionate 50 2 spray intranasal DAILY 30 days 10/15/20 mcg/actuation nasal #16 grams spray,suspension food supplemt, lactose-reduced 1 ea PO TID #90 bottles 12/05/20 (Ensure High Protein oral liquid) digoxin 125 mcg (0.125 mg) tablet 62.5 mcg PO DAILY #30 tabs 05/21/21 loratadine 10 mg tablet 10 mg PO DAILY PRN allergy 05/21/21 symptoms #30 tabs omeprazole 20 mg capsule,delayed 40 mg PO DAILY 30 days #60 caps 05/22/21 release quetiapine 200 mg tablet 200 mg PO BEDTIME 30 days #30 tabs 05/23/21 albuterol sulfate 90 mcg/actuation 2 puff PO Q6H PRN shortness of 05/28/21 aerosol inhaler breath or wheezing #8.5 grams clonazepam 0.5 mg tablet 0.5 mg PO TID PRN anxiety 30 days 06/03/21 #90 tabs famotidine 20 mg tablet 20 mg PO BEDTIME 30 days #30 tabs 06/03/21 OXYGEN #1 ea 06/04/21 sacubitril 24 mg-valsartan 26 mg 1 tab PO BID 30 days #60 tabs 06/19/21 tablet (Entresto) aspirin 81 mg tablet,delayed 81 mg PO DAILY #30 tabs 06/24/21 release spironolactone 25 mg tablet 25 mg PO DAILY #30 tabs 07/22/21 oxycodone 15 mg tablet 15 mg PO Q6H PRN SOB and Pain 7 07/24/21 days #28 tabs oxycodone 5 mg tablet 5 mg PO Q3H PRN Breakthrough pain 07/24/21 7 days #56 tabs clonazepam 2 mg tablet 2 mg PO TID PRN agitation #9 tabs 08/24/22 oxycodone 15 mg tablet 15 mg PO Q4H PRN pain #18 tabs 08/24/22 Allergies Allergy/AdvReac Type Severity Reaction Status Date / Time nicotine AdvReac Unknown severe Verified 11/26/21 16:06 nausea FRUIT Allergy Severe MOUTH AND Uncoded 11/26/21 16:06 FACE ITCHY, MOUTH SWELLING Review of Systems Review of Systems: Yes all other systems are reviewed and are negative Constitutional: Constitutional: Reports no additional constitutional complaints, Reports body ache(s), Denies chills, Denies fever(s), Denies headache(s) and Reports weakness Eyes: Eyes: Reports no additional eye complaints and Denies change in vision ENT: Reports system reviewed and no additional complaints, except as documented, Denies dizziness, Denies headache(s), Denies nasal congestion, Denies nasal discharge and Denies neck pain Cardiovascular: Cardiovascular: Reports no additional cardiovascular complaints, Denies chest pain, Denies leg edema and Denies dyspnea Respiratory: Respiratory: Reports no additional respiratory complaints, Denies cough and Denies dyspnea Gastrointestinal: Gastrointestinal: Reports no additional gastrointestinal complaints, Denies abdominal pain, Denies diarrhea, Denies nausea and Denies vomiting Genitourinary: Genitourinary: Denies urinary incontinence Musculoskeletal: Musculoskeletal: Reports no additional musculoskeletal complaints, Denies back pain, Denies arthralgias, Denies joint swelling, Denies neck pain, Denies numbness and Denies tingling Integumentary/Breasts: Skin/Breast: Reports system reviewed and no additional complaints, except as docu and Denies rash Neurologic: Reports system reviewed and no additional complaints, except as documented, Denies dizziness, Denies headache(s), Denies numbness, Denies tingling and Reports weakness PMFSH Past Medical History Attestation statement: The following information was validated with the patient. Source: old records reviewed and nursing notes reviewed Medical History Alcohol abuse Allergic rhinitis Anxiety and depression Chronic obstructive pulmonary disease (COPD) Coronary artery disease Degenerative cervical spinal stenosis Family history of colon cancer Genital sore GERD (gastroesophageal reflux disease) Hearing loss HFrEF (heart failure with reduced ejection fraction) Insomnia Left ear pain Lumbar degenerative disc disease Mouth sores Pure hypercholesterolemia Recurrent epigastric abdominal pain Surgical History H/O prior ablation treatment History of inguinal hernia repair History of placement of stent in LAD coronary artery Family History Family History Brother Colon cancer Adenomatous polyps Mother Colon cancer Adenomatous polyps Hypertension CVD (cardiovascular disease) Father Medical history unknown Social History Social History Household Members Other:: living with ex- Housing: Apartment Alcohol intake: former Patient Tobacco Use Status: Current everyday Tobacco user Tobacco use type: Cigarette Cigarettes Per Day: 2 Smoked in Last 30 Days: Yes e-Cigarette/Vaping Use: Never Used Second Hand Smoke Exposure: Yes Advance Directives: No Advance Directives Information Provided: No Advance Directives Date on File: 06/11/21 service: No Current occupational status: disabled Cognitive needs: No Hearing needs: No Vision needs: Yes Physical Exam ED Vital Signs: Vital Signs - 24 hr 08/24/22 10:54 08/24/22 11:56 Temperature 96.6 F L Pulse Rate 90 88 Respiratory Rate 20 12 Blood Pressure 108/84 121/93 H Pulse Oximetry 95 96 Oxygen Delivery Method Room Air Room Air BMI result Body Mass Index 21.2 Const Other: Thin, ill-appearing patient General: alert Orientation/consciousness: patient oriented x3 Limitations: no limitations HENMT Head: Yes normal to inspection Ears: hearing grossly normal bilaterally Eyes General: appearance normal, both eyes and all related structures Pupils: Equal, round and reactive pupils present Neck Neck: Yes normal visual inspection Chest Chest palpation & inspection: normal inspection of the chest Resp Effort & Inspection: normal respiratory effort Cardio Peripheral pulses: Peripheral pulses 2+ throughout GI Inspection: Yes normal to inspection Skin General skin exam: no rashes or lesions noted Neuro General: patient oriented x3 and moves all extremities Cranial nerves: Yes Equal, round and reactive pupils present Course Course Course Narrative: 1330-Patient is feeling more comfortable. Patient does have established care with [facility] hospice. I do believe it would be beneficial for the sister and the patient have some additional education on hospice and medication dosages. I spoke to the case making machine operator. This [facility] is not open on Sundays. They will be open tomorrow and our case making machine operator will send them in a message so that they may be in contact with the family. I will speak to the sister about medications and review these. Left voicemail for call back Reevaluation(s) Reevaluation #1: 1400-I spoke to the patient's sister. She tells me that over the last 2 weeks the patient has not had relief in pain and has been quite agitated despite taking his oxycodone 15 mg every 6 hours and clonazepam 1 mg every 8 hours. We discussed the goals of hospice are comfort care. Therefore we will increase his dose of oxycodone and clonazepam. I do believe the patient and his sister could use re-education on hospice. I explained to the sister that the hospice team will reach out to them tomorrow for re-evaluation as our case making machine operator symptom a message. The sister plans on staying with the patient tonight. Patient and family are agreeable with plan of care. Medications Administered Discontinued Medications Generic Name Dose Route Start Last Admin Trade Name Shelly PRN Reason Stop Dose Admin Lorazepam 1 mg 08/24/22 11:09 08/24/22 11:24 Lorazepam 2 Mg/Ml Vial IVPUSH 08/24/22 11:10 1 mg STAT STA Administration Morphine Sulfate 4 mg 08/24/22 11:09 08/24/22 11:24 Morphine Sulfate 4 Mg/Ml Cartridge IVPUSH 08/24/22 11:10 4 mg ONCE ONE Administration Protocol Medical Decision Making Medical Decision Making MDM Narrative: This is a 62-year-old male with a history of congestive heart failure currently on hospice with complaints of generalized body pain, weakness and feeling lightheaded noted to be hypoglycemic by EMS and received dextrose prior to arrival with prodrome of several days of decreased oral intake and poor appetite. On arrival blood sugar greater than 100. Patient states he is currently on hospice and arrives with a MOLST which reflects his wishes. Patient would not like any invasive measures until we speak to his sister Maddy. I did call and speak to Maddy. She tells me that the patient has been declining over the last few days with very little oral intake. She tells me that today he was quite uncomfortable complaining of pain all over and feeling weak and dizzy. She tried giving him his morphine and lorazepam at home but this did not seem to help his symptoms and she did not feel like that she could manage him prompting her to call EMS. She confirms with me that the patient is on hospice and they would not like to change his hospice designation. They would like me to make him comfortable with the goal for the patient to be home to continue his hospice. Patient we medicated with lorazepam and Ativan and we will reassess Will involve Slitter Scorer Differential Diagnosis Differential Diagnoses: The differential diagnosis associated with the presentation includes Lab Data MDM Lab Attestation statement: I reviewed the patient's lab results. Labs: Lab Results 08/24/22 08/24/22 Range/Units 10:54 14:02 POC Glucose 103 78 (60-115) mg/dL Discharge Plan Discharge Clinical Impression: HFrEF (heart failure with reduced ejection fraction) Patient Disposition: Home, Self-Care Instructions: Heart Failure (ED) Additional Instructions: We have increased you dose of oxycodone and clonazepam. Our case making machine operator sent a message to [facility] about your visit today. If you do not hear from them tomorrow please reach out to their office in school suspension coordinator as a may need to adjust his medications Prescriptions: New oxycodone 15 mg tablet 15 mg PO Q4H PRN (Reason: pain) Qty: 18 0RF Rx Instructions: Partial Fill upon patient request. clonazepam 2 mg tablet 2 mg PO TID PRN (Reason: agitation) Qty: 9 0RF No Action fluticasone propionate 50 mcg/actuation spray,suspension 2 spray intranasal DAILY 30 Days Qty: 16 5RF Rx Instructions: administer into each nostril Ensure High Protein Liquid 1 ea PO TID Qty: 90 6RF digoxin 125 mcg (0.125 mg) tablet 62.5 mcg PO DAILY Qty: 30 0RF loratadine 10 mg tablet 10 mg PO DAILY PRN (Reason: allergy symptoms) Qty: 30 1RF omeprazole 20 mg capsule,delayed release(DR/EC) 40 mg PO DAILY 30 Days Qty: 60 5RF quetiapine 200 mg tablet 200 mg PO BEDTIME 30 Days Qty: 30 2RF (DME) Oxygen Home Use Kit See Rx Instructions .Route Rx Instructions: As directed- 2LPM as needed dyspnea famotidine 20 mg tablet 20 mg PO BEDTIME 30 Days Qty: 30 5RF clonazepam 0.5 mg tablet 0.5 mg PO TID PRN (Reason: anxiety) 30 Days Qty: 90 0RF (DME) OXYGEN See Rx Instructions .Route .MEDSUPPLY Qty: 1 11RF Rx Instructions: As directed at 2 LPM per nasal cannula aspirin 81 mg tablet,delayed release (DR/EC) 81 mg PO DAILY Qty: 30 1RF spironolactone 25 mg tablet 25 mg PO DAILY Qty: 30 0RF oxycodone 15 mg tablet 15 mg PO Q6H PRN (Reason: SOB and Pain ) 7 Days Qty: 28 0RF oxycodone 5 mg tablet 5 mg PO Q3H PRN (Reason: Breakthrough pain ) 7 Days Qty: 56 0RF fluoxetine 20 mg capsule 20 mg PO QAM midodrine 10 mg tablet 15 mg PO TID nystatin 100,000 unit/gram cream topical docusate sodium 100 mg capsule 100 mg PO BID PRN hydrocortisone 2.5 % cream 1 appl topical TID PRN Biotene Moisturizing Mouth [place],Non-Aerosol 1 appl mucous membrane Q3H PRN ketoprofen 10 % cream in packet topical BID PRN atropine 1 % drops 1 drp PO Q4-6H PRN Rx Instructions: administer to back of throat/tongue and swallow trazodone 50 mg tablet 50 mg PO BEDTIME PRN sennosides 8.6 mg tablet 8.6 mg PO BEDTIME PRN (Reason: constipation) gabapentin 800 mg tablet 800 mg PO BID fluticasone propionate [Flonase Allergy Relief] 50 mcg/actuation spray,suspension 1 spray intranasal DAILY Qty: 150 0RF Rx Instructions: administer into each nostril Entresto 24-26 mg tablet 1 tab PO BID 30 Days Qty: 60 3RF albuterol sulfate 90 mcg/actuation HFA aerosol inhaler 2 puff PO Q6H PRN (Reason: shortness of breath or wheezing) Qty: 8.5 3RF
--- NOTE | 2022-08-24 11:36 | PC.NURSE ---
pt resting, vitals stable. medicated for pain per mar.
[2022-08-24 11:56] VITALS: BP 121/93; PULSE 88; RESP 12; O2SAT 96
--- NOTE | 2022-08-24 12:35 | PC.NURSE ---
pt resting comfortable, reports no pain at this time.
--- NOTE | 2022-08-24 14:05 | PC.NURSE ---
awaiting ambulance for pt to be transported home
--- NOTE | 2022-08-24 14:05 | PC.NURSE ---
pt's sister mamie phone number [phone]
[2022-08-24 14:08] LABS: Glucose, Whole Blood 78 mg/dL (60-115)
--- NOTE | 2022-08-24 15:06 | MHC.CM.PN ---
Patient on hospice x 3 years. Family called EMS instead of Hospice nurse. Discussed this case with the provider. A referral was sent to [facility]. Request to resume hospice services and provide Hospice education to patient and family. Patient discharged to home via BLS.
== END 2022-08-24 15:00 | disposition home or self-care (01) ==
PROVIDERS: Emergency Provider Emergency Medicine Emergency Medical Services
DX: I50.20 Unspecified systolic (congestive) heart failure (principal); F17.210 Nicotine dependence, cigarettes, uncomplicated; Z71.6 Tobacco abuse counseling; Z79.899 Other long term (current) drug therapy
CPT/HCPCS: 82947; 96374; 96375; 99284; J2060; J2270